=== PATIENT | female | born 1955 | race Caucasian/White ===

== ENCOUNTER 2017-02-06 19:38 | Observation (INO) | payer BC ==
[~2017-02-06] VITALS: Ht 167.6 cm; Wt 75.0 kg
[~2017-02-06 19:38] MED LIST: AGG PO; CLR10 PO; CRS20 PO; PRLSR20 PO
[2017-02-06] MEDS ORDERED: MoRPHine SULFATE 4 MG/ML 1 ML CARP\\VIAL IV STA (19:56)
[2017-02-06] MEDS ORDERED: ONDANSETRON INJ 2 MG/ML 2 ML VIAL IV STA (19:56)
[2017-02-06 20:20] LABS: BASO % 0.3 %; BASO ABS # 0.02 K/uL (0-0.2); COMPLETE YES; EOS % 1.7 %; HEMATOCRIT 38.3 % (37-47); IG% 0.7 %; LYMPH ABS # 1.82 K/uL (1.2-3.4); MEAN CELL VOLUME 89.3 fL (80-100); MEAN CORPUSCULAR HEMOGLOBIN 30.5 pg (25-34); MEAN CORPUSCULAR HGB CONC 34.2 g/dl (32-36); MEAN PLATELET VOLUME 9.3 fL (7.4-10.4); MONO % 6.8 %; NEUT % 59.5 %; PLATELET COUNT 200 K/uL (130-400); RED BLOOD COUNT 4.29 M/uL (4.2-5.4); WHITE BLOOD COUNT 5.87 K/uL (4.8-10.8)
[2017-02-06 20:39] LABS: BUN/CREATININE RATIO 18.6 (10-20); CALCIUM 8.8 mg/dl (8.5-10.1); CREATININE 0.81 mg/dl (0.60-1.20); POTASSIUM 3.5 mmol/L (3.5-5.1)
[2017-02-06 20:51] LABS: INR 0.9 (0.9-1.1); PARTIAL THROMBOPLASTIN RATIO 0.9
[2017-02-06 21:15] LABS: ALKALINE PHOSPHATASE 78 U/L (45-117); ALT/SGPT 24 U/L (12-78); AST/SGOT 21 U/L (15-37)
--- NOTE | 2017-02-06 21:51 | DIAGNOSTIC IMAGING REPORT ---
L-SPINE MIN 4 VIEWS ROUTINE CLINICAL HISTORY: Fall. COMPARISON: None FINDINGS: There is a mild compression fracture of the superior endplate of L2. There is slight anterolisthesis of L4 and L5. Moderate multilevel degenerative changes are present. There are cholecystectomy clips. IMPRESSION: 1. Mild L2 compression fracture which may be acute. 2. Moderate multilevel degenerative changes. Electronically signed by: Gonzalo Gallegos M.D. 02/06/2017 9:49 PM Dictated Date/Time: 02/06/2017 9:44 PM
--- NOTE | 2017-02-06 21:52 | DIAGNOSTIC IMAGING REPORT ---
CERVICAL SPINE 2 OR 3 VIEWS CLINICAL HISTORY: Fall. COMPARISON STUDY: Cervical spine radiographs May 06, 2013 FINDINGS: C7 is obscured on this exam. There is straightening of the normal cervical lordosis. No acute fracture is identified within visualized portions of the cervical spine. Moderate multilevel degenerative changes are present. IMPRESSION: 1. Obscuration of C7. 2. No fracture within visualized portions of the cervical spine. 3. Moderate multilevel degenerative disc disease. Electronically signed by: Gonzalo Gallegos M.D. 02/06/2017 9:50 PM Dictated Date/Time: 02/06/2017 9:49 PM
--- NOTE | 2017-02-06 21:53 | DIAGNOSTIC IMAGING REPORT ---
PELVIS 1 OR 2 VIEW ROUTINE CLINICAL HISTORY: Fall. COMPARISON STUDY: CT of the abdomen and pelvis November 02, 2008. FINDINGS: The sacroiliac joints and symphysis pubis are intact. No acute fracture within the pelvis or hips is identified. IMPRESSION: No acute fracture within the pelvis or hips. Electronically signed by: Gonzalo Gallegos M.D. 02/06/2017 9:51 PM Dictated Date/Time: 02/06/2017 9:50 PM
--- NOTE | 2017-02-06 21:54 | DIAGNOSTIC IMAGING REPORT ---
SACRUM COCCYX MIN 2 VIEWS CLINICAL HISTORY: Fall. Tailbone pain. COMPARISON STUDY: No previous studies for comparison. FINDINGS: No acute fracture is identified within the sacrum or coccyx by radiography. The sacroiliac joints are intact. IMPRESSION: No acute fracture of the sacrum or coccyx identified by radiography. Electronically signed by: Gonzalo Gallegos M.D. 02/06/2017 9:52 PM Dictated Date/Time: 02/06/2017 9:52 PM
--- NOTE | 2017-02-06 21:55 | DIAGNOSTIC IMAGING REPORT ---
RIGHT ANKLE MIN 3 VIEWS ROUTINE CLINICAL HISTORY: Right ankle pain following fall. COMPARISON: None FINDINGS: Alignment of the right ankle is anatomic. No acute fracture is identified. A well-corticated ossicle along the medial malleolus suggests old injury. IMPRESSION: 1. No acute fracture or dislocation of the right ankle. 2. Tiny ossicle along the medial malleolus which favors an old injury. Electronically signed by: Gonzalo Gallegos M.D. 02/06/2017 9:54 PM Dictated Date/Time: 02/06/2017 9:53 PM
[2017-02-06] MEDS ORDERED: ATOR-22 PO (21:57)
--- NOTE | 2017-02-06 21:58 | DIAGNOSTIC IMAGING REPORT ---
RIGHT FOOT MIN 3 VIEWS ROUTINE CLINICAL HISTORY: Right foot pain following fall. COMPARISON: None FINDINGS: The tarsometatarsal joints are intact. There is mild posterior and plantar calcaneal spurring. There is mild irregularity of the dorsal aspect of the distal talus. There are a few tiny ossific/calcific densities along the lateral aspect of the distal calcaneus and cuboid. IMPRESSION: 1. Subtle cortical irregularity along the dorsal aspect of the distal talus. This may reflect acute avulsion injury. 2. A few age indeterminate small bone fragments along the lateral aspect of the right midfoot. Electronically signed by: Gonzalo Gallegos M.D. 02/06/2017 9:56 PM Dictated Date/Time: 02/06/2017 9:54 PM
--- NOTE | 2017-02-06 21:58 | DIAGNOSTIC IMAGING REPORT ---
LEFT ANKLE MIN 3 VIEWS ROUTINE CLINICAL HISTORY: Left ankle pain following fall. COMPARISON: None FINDINGS: Alignment of the left ankle is anatomic. There is mild posterior calcaneal spurring. No acute fracture is identified. IMPRESSION: No acute fracture or dislocation of the left ankle. Electronically signed by: Gonzalo Gallegos M.D. 02/06/2017 9:57 PM Dictated Date/Time: 02/06/2017 9:56 PM
--- NOTE | 2017-02-06 21:59 | DIAGNOSTIC IMAGING REPORT ---
LEFT FOOT MIN 3 VIEWS ROUTINE CLINICAL HISTORY: Left foot pain following fall. COMPARISON: None FINDINGS: The tarsometatarsal joints are intact. No acute fracture is identified within the left foot. There is mild posterior calcaneal spurring. Mild arthritis is noted within the left midfoot. IMPRESSION: No acute fracture or dislocation of the left foot. Electronically signed by: Gonzalo Gallegos M.D. 02/06/2017 9:58 PM Dictated Date/Time: 02/06/2017 9:57 PM
[2017-02-06] MEDS ORDERED: LORATADINE 10 MG TAB PO PRN (23:15)
[2017-02-06] MEDS ORDERED: MoRPHine SULFATE 4 MG/ML 1 ML CARP\\VIAL IV PRN (23:15)
[2017-02-06] MEDS ORDERED: ZOLPIDEM TARTRATE 5 MG TAB PO PRN (23:15)
--- NOTE | 2017-02-06 23:20 | DIAGNOSTIC IMAGING REPORT ---
CT LUMBAR SPINE WITHOUT CT DOSE: 597.47 mGy.cm CLINICAL HISTORY: Back pain following fall. L2 compression fracture. TECHNIQUE: Axial images of the lumbar spine were obtained without IV contrast. Sagittal and coronal reconstructions were viewed. COMPARISON STUDY: Lumbar spine radiographs February 06, 2017. FINDINGS: For purposes of numbering on this exam, the L5-S1 disc space is assigned to axial image 635 of 719. There is an acute compression fracture of the superior endplate of L2 with 30% loss of vertebral body height. There is minimal retropulsion. No extension into the posterior elements is identified. No additional acute lumbar spine fractures are identified. There is moderate to marked disc space narrowing at L5-S1. There is possible hyperdense material within the anterior epidural space within the lumbar canal that measures 4 mm in thickness. IMPRESSION: 1. Acute L2 compression fracture with 30% loss of vertebral body height and minimal retropulsion. 2. Apparent hyperdense material within the anterior epidural space that reflect an epidural hematoma which measures approximately 4 mm in AP extent. An MRI of the lumbar spine is recommended. Discussed with Dr. Villanueva at time of dictation. Electronically signed by: Gonzalo Gallegos M.D. 02/06/2017 11:19 PM Dictated Date/Time: 02/06/2017 11:06 PM
[2017-02-06] MEDS ORDERED: IV FLUIDS COMPLETED PRN (23:45)
[2017-02-06] MEDS: ONDANSETRON INJ 2 MG/ML 2 ML VIAL IV PRN (23:45)
[2017-02-07] VITALS (7 sets, daily range): BP systolic 74–129; BP diastolic 49–79; PULSE 53–84; TEMP 36.4–37.1; O2SAT 92–95; Ht 167.6 cm; Wt 75.0 kg
--- NOTE | 2017-02-07 00:15 | EMERGENCY ROOM VISIT NOTE ---
History Report prepared by Meron: Deanna Iniguez Under the Supervision of: Dr. Wesley Villanueva M.D. First contact with patient: 19:47 Chief Complaint: FALL Stated Complaint: FALL, BACK & ANKLE PAIN History of Present Illness The patient is a 62 year old female who presents to the Emergency Room with complaints of constant pain from injuries following a fall that occurred just prior to arrival. The patient states that she was walking down her basement stairs to do laundry when she tripped and fell. She states she thinks she fell down about 8 steps. She twisted her back and complains of lower back pain along the midline. She also states bilateral lateral foot pain. She denies LOC, head injury, neck pain, abdominal pain, headache, knee pain or hip pain. Source of History: patient Onset: just MILL WORK Position: other (global) Symptom Intensity: severe Quality: other (pain from injuries) Timing: constant Modifying Factors (Worsening): movement Associated Symptoms: + back pain (lower along midline), No LOC, No SOB, No headache Note: Patient has bilaterally lateral foot pain. Review of Systems See HPI for pertinent positives & negatives. A total of 10 systems reviewed and were otherwise negative. Past Medical & Surgical Medical Problems: (1) Breast cancer (2) Cardiovascular stress testing (3) Cholecystectomy (4) Compression fracture of L2 (5) Gastroesophageal reflux disease (6) Hyperlipidemia (7) Migraines (8) Partial mastectomy Family History Cancer FHx: gallbladder disease Heart disease Hypertension Social History Smoking Status: Never Smoker Drug Use: none Marital Status: single Occupation Status: employed Current/Historical Medications Scheduled Atorvastatin (Lipitor), 20 MG PO HS Scheduled PRN Loratadine (Claritin), 10 MG PO DAILY PRN for ALLERGIC REACTION Allergies Coded Allergies: No Known Allergies (Verified , 02/06/17) Physical Exam Vital Signs Date Time Temp Pulse Resp B/P Pulse Ox O2 Delivery O2 Flow Rate FiO2 02/06/17 22:52 96 136/78 95 02/06/17 21:49 91 18 126/73 95 Room Air 02/06/17 19:45 36.9 96 20 126/79 97 Room Air Physical Exam Constitutional: Vital signs reviewed. Eyes: Pupils are equal round reactive to light. Conjunctiva are noninjected. ENT: Pharynx is clear without erythema or exudate. Mucous membranes are moist. Neck supple without meningeal signs. Nontender Cervical spine. Respiratory: Clear to auscultation bilaterally. Breath sounds are equal bilaterally. Cardiovascular: Regular rate and rhythm. No rubs or gallops. GI: Soft, nondistended and nontender. Bowel sounds are present. Musculoskeletal: Midline tenderness to lower lumbar and upper sacrum, no tenderness to thoracic spine, no step off. Tender to bilateral feet just below lateral malleolus. No hip tenderness or knee tenderness. Integumentary: No cyanosis. Neurological: The patient is awake and alert. No focal deficits. Psychiatric: Normal affect. Medical Decision & Procedures ER Provider Diagnostic Interpretation: Radiology results as stated below per my review and the radiologist's interpretation: PELVIS 1 OR 2 VIEW ROUTINE CLINICAL HISTORY: Fall. COMPARISON STUDY: CT of the abdomen and pelvis November 02, 2008. FINDINGS: The sacroiliac joints and symphysis pubis are intact. No acute fracture within the pelvis or hips is identified. IMPRESSION: No acute fracture within the pelvis or hips. Electronically signed by: Gonzalo Gallegos M.D. 02/06/2017 9:51 PM Dictated Date/Time: 02/06/2017 9:50 PM L-SPINE MIN 4 VIEWS ROUTINE CLINICAL HISTORY: Fall. COMPARISON: None FINDINGS: There is a mild compression fracture of the superior endplate of L2. There is slight anterolisthesis of L4 and L5. Moderate multilevel degenerative changes are present. There are cholecystectomy clips. IMPRESSION: 1. Mild L2 compression fracture which may be acute. 2. Moderate multilevel degenerative changes. Electronically signed by: Gonzalo Gallegos M.D. 02/06/2017 9:49 PM Dictated Date/Time: 02/06/2017 9:44 PM RIGHT FOOT MIN 3 VIEWS ROUTINE CLINICAL HISTORY: Right foot pain following fall. COMPARISON: None FINDINGS: The tarsometatarsal joints are intact. There is mild posterior and plantar calcaneal spurring. There is mild irregularity of the dorsal aspect of the distal talus. There are a few tiny ossific/calcific densities along the lateral aspect of the distal calcaneus and cuboid. IMPRESSION: 1. Subtle cortical irregularity along the dorsal aspect of the distal talus. This may reflect acute avulsion injury. 2. A few age indeterminate small bone fragments along the lateral aspect of the right midfoot. Electronically signed by: Gonzalo Gallegos M.D. 02/06/2017 9:56 PM Dictated Date/Time: 02/06/2017 9:54 PM LEFT FOOT MIN 3 VIEWS ROUTINE CLINICAL HISTORY: Left foot pain following fall. COMPARISON: None FINDINGS: The tarsometatarsal joints are intact. No acute fracture is identified within the left foot. There is mild posterior calcaneal spurring. Mild arthritis is noted within the left midfoot. IMPRESSION: No acute fracture or dislocation of the left foot. Electronically signed by: Gonzalo Gallegos M.D. 02/06/2017 9:58 PM Dictated Date/Time: 02/06/2017 9:57 PM SACRUM COCCYX MIN 2 VIEWS CLINICAL HISTORY: Fall. Tailbone pain. COMPARISON STUDY: No previous studies for comparison. FINDINGS: No acute fracture is identified within the sacrum or coccyx by radiography. The sacroiliac joints are intact. IMPRESSION: No acute fracture of the sacrum or coccyx identified by radiography. Electronically signed by: Gonzalo Gallegos M.D. 02/06/2017 9:52 PM Dictated Date/Time: 02/06/2017 9:52 PM RIGHT ANKLE MIN 3 VIEWS ROUTINE CLINICAL HISTORY: Right ankle pain following fall. COMPARISON: None FINDINGS: Alignment of the right ankle is anatomic. No acute fracture is identified. A well-corticated ossicle along the medial malleolus suggests old injury. IMPRESSION: 1. No acute fracture or dislocation of the right ankle. 2. Tiny ossicle along the medial malleolus which favors an old injury. Electronically signed by: Gonzalo Gallegos M.D. 02/06/2017 9:54 PM Dictated Date/Time: 02/06/2017 9:53 PM LEFT ANKLE MIN 3 VIEWS ROUTINE CLINICAL HISTORY: Left ankle pain following fall. COMPARISON: None FINDINGS: Alignment of the left ankle is anatomic. There is mild posterior calcaneal spurring. No acute fracture is identified. IMPRESSION: No acute fracture or dislocation of the left ankle. Electronically signed by: Gonzalo Gallegos M.D. 02/06/2017 9:57 PM Dictated Date/Time: 02/06/2017 9:56 PM CERVICAL SPINE 2 OR 3 VIEWS CLINICAL HISTORY: Fall. COMPARISON STUDY: Cervical spine radiographs May 06, 2013 FINDINGS: C7 is obscured on this exam. There is straightening of the normal cervical lordosis. No acute fracture is identified within visualized portions of the cervical spine. Moderate multilevel degenerative changes are present. IMPRESSION: 1. Obscuration of C7. 2. No fracture within visualized portions of the cervical spine. 3. Moderate multilevel degenerative disc disease. Electronically signed by: Gonzalo Gallegos M.D. 02/06/2017 9:50 PM Dictated Date/Time: 02/06/2017 9:[address] LUMBAR SPINE WITHOUT CT DOSE: 597.47 mGy.cm CLINICAL HISTORY: Back pain following fall. L2 compression fracture. TECHNIQUE: Axial images of the lumbar spine were obtained without IV contrast. Sagittal and coronal reconstructions were viewed. COMPARISON STUDY: Lumbar spine radiographs February 06, 2017. FINDINGS: For purposes of numbering on this exam, the L5-S1 disc space is assigned to axial image 635 of 719. There is an acute compression fracture of the superior endplate of L2 with 30% loss of vertebral body height. There is minimal retropulsion. No extension into the posterior elements is identified. No additional acute lumbar spine fractures are identified. There is moderate to marked disc space narrowing at L5-S1. There is possible hyperdense material within the anterior epidural space within the lumbar canal that measures 4 mm in thickness. IMPRESSION: 1. Acute L2 compression fracture with 30% loss of vertebral body height and minimal retropulsion. 2. Apparent hyperdense material within the anterior epidural space that reflect an epidural hematoma which measures approximately 4 mm in AP extent. An MRI of the lumbar spine is recommended. Discussed with Dr. Villanueva at time of dictation. Electronically signed by: Gonzalo Gallegos M.D. 02/06/2017 11:19 PM Dictated Date/Time: 02/06/2017 11:06 PM X-ray results as stated below per interpretation by me: Ribs w/ Chest X-Ray: No pneumothorax. Questionable fracture to 7th rib. Laboratory Results 02/06/17 20:09 Red Blood Count 4.29, Mean Corpuscular Volume 89.3, Mean Corpuscular Hemoglobin 30.5, Mean Corpuscular Hemoglobin Concent 34.2, Mean Platelet Volume 9.3, Neutrophils (%) (Auto) 59.5, Lymphocytes (%) (Auto) 31.0, Monocytes (%) (Auto) 6.8, Eosinophils (%) (Auto) 1.7, Basophils (%) (Auto) 0.3, Neutrophils # (Auto) 3.49, Lymphocytes # (Auto) 1.82, Monocytes # (Auto) 0.40, Eosinophils # (Auto) 0.10, Basophils # (Auto) 0.02 02/06/17 20:09 Test 02/06/17 20:09 White Blood Count 5.87 K/uL (4.8-10.8) Red Blood Count 4.29 M/uL (4.2-5.4) Hemoglobin 13.1 g/dL (12.0-16.0) Hematocrit 38.3 % (37-47) Mean Corpuscular Volume 89.3 fL (80-100) Mean Corpuscular Hemoglobin 30.5 pg (25-34) Mean Corpuscular Hemoglobin Concent 34.2 g/dl (32-36) Platelet Count 200 K/uL (130-400) Mean Platelet Volume 9.3 fL (7.4-10.4) Neutrophils (%) (Auto) 59.5 % Lymphocytes (%) (Auto) 31.0 % Monocytes (%) (Auto) 6.8 % Eosinophils (%) (Auto) 1.7 % Basophils (%) (Auto) 0.3 % Neutrophils # (Auto) 3.49 K/uL (1.4-6.5) Lymphocytes # (Auto) 1.82 K/uL (1.2-3.4) Monocytes # (Auto) 0.40 K/uL (0.11-0.59) Eosinophils # (Auto) 0.10 K/uL (0-0.5) Basophils # (Auto) 0.02 K/uL (0-0.2) RDW Standard Deviation 41.3 fL (36.4-46.3) RDW Coefficient of Variation 12.8 % (11.5-14.5) Immature Granulocyte % (Auto) 0.7 % Immature Granulocyte # (Auto) 0.04 K/uL (0.00-0.02) Prothrombin Time 10.0 SECONDS (9.0-12.0) Prothromb Time International Ratio 0.9 (0.9-1.1) Activated Partial Thromboplast Time 24.0 SECONDS (21.0-31.0) Partial Thromboplastin Ratio 0.9 Anion Gap 9.0 mmol/L (3-11) Est Creatinine Clear Calc Drug Dose 80.6 ml/min Estimated GFR () 91.5 Estimated GFR (Non- 78.9 BUN/Creatinine Ratio 18.6 (10-20) Calcium Level 8.8 mg/dl (8.5-10.1) Total Bilirubin 0.3 mg/dl (0.2-1) Direct Bilirubin < 0.1 mg/dl (0-0.2) Aspartate Amino Transf (AST/SGOT) 21 U/L (15-37) Alanine Aminotransferase (ALT/SGPT) 24 U/L (12-78) Alkaline Phosphatase 78 U/L (45-117) Total Protein 6.8 gm/dl (6.4-8.2) Albumin 3.8 gm/dl (3.4-5.0) Lipase 168 U/L (73-393) Laboratory results as reviewed by me. Medications Administered Medications (Trade) Dose Ordered Sig/Carly Route Start Time Stop Time Status Last Admin Dose Admin Morphine Sulfate (MoRPHine SULFATE INJ) 4 mg NOW STAT IV 02/06/17 19:56 02/06/17 19:58 DC 02/06/17 20:11 4 MG Ondansetron HCl (Zofran Inj) 4 mg NOW STAT IV 02/06/17 19:56 02/06/17 19:58 DC 02/06/17 20:07 4 MG Ondansetron HCl (Zofran Inj) 4 mg Q6H PRN IV 02/06/17 23:15 03/08/17 23:14 02/06/17 23:45 4 MG Morphine Sulfate (MoRPHine SULFATE INJ) 4 mg Q2H PRN IV 02/06/17 23:15 02/20/17 23:14 02/06/17 23:45 4 MG ED Course 1949: The patient was evaluated in room C1. A complete history and physical exam was performed. 1955: Zofran Inj 4 mg IV, Morphine Sulfate Inj 4 mg IV. 2037: Nurse states the patient is complaining of nausea and abdominal discomfort. I went to reassess the patient and she was at X-Ray. 2202: I reevaluated the patient. She reports no abdominal pain. One exam she is nontender to palpation except over left lower ribs. 2207: I spoke with Dr. Haji of [facility]. We discussed the patient and her results. The patient will be further evaluated by Dr. Haji - [facility]. 2325: I spoke with Dr. Gallegos - Radiology about the patient's CT results. He says there may be a possible epidural hematoma and recommends MRI of the foot and ankle. I discussed this with Dr. Adithya MELENDEZ and he agrees. He will follow up with an MRI of the foot and ankle. 2333: I discussed with the patient that she will be getting an MRI and her test results so far. Medical Decision This is a 62-year-old female presents with injuries after a fall. Differential diagnosis includes vertebral compression fracture, strain, pelvic fracture, foot fracture, multiple contusions. I did perform a limited focused review of portions of the patient's old chart on the electronic medical record. The patient has had no recent pertinent visits to this hospital. I did evaluate the patient as noted above. IV access was established. I did treat the patient with IV morphine and Zofran. I did order and personally review the patient's multiple x-rays as described above. She does have a L2 compression fracture as well as a right foot avulsion fracture. I did order and review the patient's blood work as noted in the electronic medical record. I did discuss the test results with the patient and her family. I did recommend hospitalization for further care and evaluation. I did discuss case with Dr. Ames who requested a CT scan be performed at the lower back. I did order a CT of the lumbar spine. I did review the images myself as well as the radiology report as described above. She does have an acute L2 fracture with questionable epidural bleed. The radiologist recommended an MRI to further clarify this. I did discuss this with the patient and her family. She was given additional pain medication. I did order an MRI of the lumbar spine as well as the right foot. Dr. Ames will follow up with the MRI results. Consults Time Called: 2205 Consulting Physician: Dr. Adithya MELENDEZ Returned Call: [address] Haji of [facility]. We discussed the patient and her results. The patient will be further evaluated by Dr. Adithya MELENDEZ. Impression Primary Impression: Compression fracture of L2 Additional Impressions: Foot fracture, right Fall possible epidural hematoma Scribe Attestation The scribe's documentation has been prepared under my direct and personally reviewed by me in its entirety. I confirm that the note above accurately reflects all work, treatment, procedures, and medical decision making performed by me. Departure Information Dispostion Being Evaluated By Hospitalist Referrals Hilda Montoya D.O. (PCP) Problem Qualifiers Primary Impression: Compression fracture of L2 Encounter type: initial encounter Fracture type: closed Qualified Codes: S32.020A - Wedge compression fracture of second lumbar vertebra, initial encounter for closed fracture Additional Impressions: Foot fracture, right Encounter type: initial encounter Fracture type: closed Qualified Codes: S92.901A - Unspecified fracture of right foot, initial encounter for closed fracture Fall Encounter type: initial encounter Qualified Codes: W19.XXXA - Unspecified fall, initial encounter
[2017-02-07] MEDS ORDERED: GADAVIST IV PRN (02:45)
--- NOTE | 2017-02-07 04:32 | History and Physical ---
History & Physical Date & Time of Service: Feb 07, 2017 at 04:20. Date of examination was 02/06/2017. Chief Complaint: Compression Fracture Of L2 Primary Care Physician: Hilda Montoya D.O. History of Present Illness Source: patient, family The patient is a 62-year-old female who presents emergency department with complaint of low back pain and right ankle pain after a fall that occurred just prior to arrival. She reports that she tripped and fell down her 8 basement steps. She denies any injury. She also reports some left rib cage pain. She denies any lightheadedness or dizziness that led to the fall. Past Medical/Surgical History Medical Problems: (1) Breast cancer Status: Chronic (2) Cardiovascular stress testing Status: Resolved (3) Cholecystectomy Status: Resolved (4) Gastroesophageal reflux disease Status: Chronic (5) Hyperlipidemia Status: Chronic (6) Migraines Status: Chronic (7) Partial mastectomy Status: Resolved Family History Cancer FHx: gallbladder disease Heart disease Hypertension Social History Smoking Status: Never Smoker Smokeless Tobacco Use: No Alcohol Use: none Drug Use: none Marital Status: single Occupational Status: employed Immunizations History of Influenza Vaccine: No History of Tetanus Vaccine?: No History of Pneumococcal: No History of Hepatitis B Vaccine: No Multi-Drug Resistant Organisms History of MDRO: No Allergies Coded Allergies: No Known Allergies (Verified , 02/06/17) Home Medications Scheduled Atorvastatin (Lipitor), 20 MG PO HS Scheduled PRN Loratadine (Claritin), 10 MG PO DAILY PRN for ALLERGIC REACTION Review of Systems The patient denies chest pain, palpitations, shortness of breath, cough, lower extremity swelling, vision change, hearing change, sore throat, fevers, chills, sweats, weight change, fatigue, nausea, vomiting, abdominal pain, pelvic pain, blood in urine or stool, dysuria, urinary frequency or urgency, lightheadedness , dizziness, headache, memory loss, rash, abnormal bruising or bleeding, imbalance, generalized weakness, neck pain, night sweats, or allergy symptoms. The review of systems is otherwise negative other than for that already noted above, and at least 10 systems have been reviewed. Physical Exam Vital Signs Date Time Temp Pulse Resp B/P Pulse Ox O2 Delivery O2 Flow Rate FiO2 02/07/17 04:05 37.1 84 16 129/79 92 Room Air 02/07/17 03:34 36.8 98 18 136/80 96 Room Air 02/07/17 02:38 100 20 124/67 95 Room Air 02/06/17 22:52 96 136/78 95 02/06/17 21:49 91 18 126/73 95 Room Air 02/06/17 19:45 36.9 96 20 126/79 97 Room Air The patient is awake, well-developed and adequately nourished, alert and oriented 3, normocephalic and atraumatic, lying in bed and in no acute distress. HEENT--PERRL, EOMI, mucous membranes and oropharynx normal. Neck--supple, no JVD or bruits, thyroid normal, trachea midline, no adenopathy. Heart--normal S1 and S2, no extra beats, no murmurs, rubs or gallops. Lungs--clear bilaterally with good air movement, no respiratory distress, no accessory muscle use. Abdomen--normal bowel sounds and soft, nontender and nondistended, no hernias or masses, no organomegaly. Extremities--no cyanosis, clubbing or edema. There are good distal pulses b/l. Dermatologic--normal skin turgor, normal color, warm and dry, no abnormal lymph nodes, no rash. Neurologic--cranial nerves II through XII grossly intact. Rheumatologic--reproducible pain over L2 region, over lateral ankle surface below the lateral malleolus, and over the left 12th rib. Psychiatric--normal affect. Diagnostics Laboratory Results Results Past 24 Hours Test 02/06/17 20:09 Range/Units White Blood Count 5.87 4.8-10.8 K/uL Red Blood Count 4.29 4.2-5.4 M/uL Hemoglobin 13.1 12.0-16.0 g/dL Hematocrit 38.3 37-47 % Mean Corpuscular Volume 89.3 80-100 fL Mean Corpuscular Hemoglobin 30.5 25-34 pg Mean Corpuscular Hemoglobin Concent 34.2 32-36 g/dl Platelet Count 200 130-400 K/uL Mean Platelet Volume 9.3 7.4-10.4 fL Neutrophils (%) (Auto) 59.5 % Lymphocytes (%) (Auto) 31.0 % Monocytes (%) (Auto) 6.8 % Eosinophils (%) (Auto) 1.7 % Basophils (%) (Auto) 0.3 % Neutrophils # (Auto) 3.49 1.4-6.5 K/uL Lymphocytes # (Auto) 1.82 1.2-3.4 K/uL Monocytes # (Auto) 0.40 0.11-0.59 K/uL Eosinophils # (Auto) 0.10 0-0.5 K/uL Basophils # (Auto) 0.02 0-0.2 K/uL RDW Standard Deviation 41.3 36.4-46.3 fL RDW Coefficient of Variation 12.8 11.5-14.5 % Immature Granulocyte % (Auto) 0.7 % Immature Granulocyte # (Auto) 0.04 0.00-0.02 K/uL Prothrombin Time 10.0 9.0-12.0 SECONDS Prothromb Time International Ratio 0.9 0.9-1.1 Activated Partial Thromboplast Time 24.0 21.0-31.0 SECONDS Partial Thromboplastin Ratio 0.9 Sodium Level 143 136-145 mmol/L Potassium Level 3.5 3.5-5.1 mmol/L Chloride Level 106 98-107 mmol/L Carbon Dioxide Level 28 21-32 mmol/L Anion Gap 9.0 3-11 mmol/L Blood Urea Nitrogen 15 7-18 mg/dl Creatinine 0.81 0.60-1.20 mg/dl Est Creatinine Clear Calc Drug Dose 80.6 ml/min Estimated GFR () 91.5 Estimated GFR (Non- 78.9 BUN/Creatinine Ratio 18.6 10-20 Random Glucose 110 70-99 mg/dl Calcium Level 8.8 8.5-10.1 mg/dl Total Bilirubin 0.3 0.2-1 mg/dl Direct Bilirubin < 0.1 0-0.2 mg/dl Aspartate Amino Transf (AST/SGOT) 21 15-37 U/L Alanine Aminotransferase (ALT/SGPT) 24 12-78 U/L Alkaline Phosphatase 78 45-117 U/L Total Protein 6.8 6.4-8.2 gm/dl Albumin 3.8 3.4-5.0 gm/dl Lipase 168 73-393 U/L Diagnostic Radiology Patient Name: JUNITO CASTILLO Unit Number: [id number] Dictated: 02/06/172149 Transcribed: 02/06/172149 JA Printed Date/Time: [~ rep prt dt]/[~ rep prt tm] [~ rep ct labl] - [~ rep ct ivnm] [facility] [place] [address] Dictated: 02/06/172149 Transcribed: 02/06/172149 JA Printed Date/Time: [~ rep prt dt]/[~ rep prt tm] [~ rep ct labl] - [~ rep ct ivnm] PELVIS 1 OR 2 VIEW ROUTINE CLINICAL HISTORY: Fall. COMPARISON STUDY: CT of the abdomen and pelvis November 02, 2008. FINDINGS: The sacroiliac joints and symphysis pubis are intact. No acute fracture within the pelvis or hips is identified. IMPRESSION: No acute fracture within the pelvis or hips. Electronically signed by: Gonzalo Gallegos M.D. 02/06/2017 9:51 PM Dictated Date/Time: 02/06/2017 9:50 PM The status of this report is Signed. Draft = Not yet reviewed or approved by Radiologist. Signed = Reviewed and approved by Radiologist. <AttendingPhy></AttendingPhy> <FamilyPhy>Hilda Montoya D.O.</FamilyPhy> < PrimaryPhy>Hilda Montoya D.O.</PrimaryPhy> <UnitNumber>[id number]</ UnitNumber> <VisitNumber>[id number]</VisitNumber> <PatientName>JUNITO CASTILLO</PatientName> <DateOfBirth>1955</DateOfBirth> <Location>[facility]</ Location> <ServiceDate>02/06/17</ServiceDate> <MNE>ESINDI</MNE> <OrderingPhy> Wesley Villanueva MD</OrderingPhy> <OrderingPhyMNE>f rep ord dr luns[place]</OrderingPhyMNE > <DictatingPhyMNE>f rep dict dr [place]uns[place]</DictatingPhyMNE> <CCListMNE>f rep ct mne</ CCListMNE> <AdmittingPhyMNE>f pt admit dr lunsford</AdmittingPhyMNE> <AttendingPhyMNE >f pt attend dr lunsford</AttendingPhyMNE> <ConsultingPhyMNE>f pt consult dr lunsford</ConsultingPhyMNE> <FamilyPhyMNE>f pt fam dr lunsford</FamilyPhyMNE> <OtherPhyMNE>f pt other dr lunsford</OtherPhyMNE> < PrimaryPhyMNE>f pt prim care dr lunsford</PrimaryPhyMNE> <ReferringPhyMNE>f pt referring dr lunsford</ReferringPhyMNE> Patient Name: JUNITO CASTILLO Unit Number: [id number] Dictated: 02/06/172143 Transcribed: 02/06/172143 JA Printed Date/Time: [~ rep prt dt]/[~ rep prt tm] [~ rep ct labl] - [~ rep ct ivnm] [facility] [place] [address] Dictated: 02/06/172143 Transcribed: 02/06/172143 JA Printed Date/Time: [~ rep prt dt]/[~ rep prt tm] [~ rep ct labl] - [~ rep ct ivnm] L-SPINE MIN 4 VIEWS ROUTINE CLINICAL HISTORY: Fall. COMPARISON: None FINDINGS: There is a mild compression fracture of the superior endplate of L2. There is slight anterolisthesis of L4 and L5. Moderate multilevel degenerative changes are present. There are cholecystectomy clips. IMPRESSION: 1. Mild L2 compression fracture which may be acute. 2. Moderate multilevel degenerative changes. Electronically signed by: Gonzalo Gallegos M.D. 02/06/2017 9:49 PM Dictated Date/Time: 02/06/2017 9:44 PM The status of this report is Signed. Draft = Not yet reviewed or approved by Radiologist. Signed = Reviewed and approved by Radiologist. <AttendingPhy></AttendingPhy> <FamilyPhy>Hilda Montoya D.O.</FamilyPhy> < PrimaryPhy>Hilda Montoya D.O.</PrimaryPhy> <UnitNumber>[id number]</ UnitNumber> <VisitNumber>[id number]</VisitNumber> <PatientName>JUNITO CASTILLO</PatientName> <DateOfBirth>1955</DateOfBirth> <Location>[facility]</ Location> <ServiceDate>02/06/17</ServiceDate> <MNE>ESINDI</MNE> <OrderingPhy> Wesley Villanueva MD</OrderingPhy> <OrderingPhyMNE>f rep ord dr luns[place]</OrderingPhyMNE > <DictatingPhyMNE>f rep dict dr [place]uns[place]</DictatingPhyMNE> <CCListMNE>f rep ct mncandace</ CCListMNE> <AdmittingPhyMNE>f pt admit dr lunsford</AdmittingPhyMNE> <AttendingPhyMNE >f pt attend dr lunsford</AttendingPhyMNE> <ConsultingPhyMNE>f pt consult dr lunsford</ConsultingPhyMNE> <FamilyPhyMNE>f pt fam dr lunsford</FamilyPhyMNE> <OtherPhyMNE>f pt other dr lunsford</OtherPhyMNE> < PrimaryPhyMNE>f pt prim care dr lunsford</PrimaryPhyMNE> <ReferringPhyMNE>f pt referring dr lunsford</ReferringPhyMNE> Patient Name: JUNITO CASTILLO Unit Number: [id number] Dictated: 02/06/172153 Transcribed: 02/06/172153 Printed Date/Time: [~ rep prt dt]/[~ rep prt tm] [~ rep ct labl] - [~ rep ct ivnm] [facility] [place] [address] Dictated: 02/06/172153 Transcribed: 02/06/172153 Printed Date/Time: [~ rep prt dt]/[~ rep prt tm] [~ rep ct labl] - [~ rep ct ivnm] RIGHT FOOT MIN 3 VIEWS ROUTINE CLINICAL HISTORY: Right foot pain following fall. COMPARISON: None FINDINGS: The tarsometatarsal joints are intact. There is mild posterior and plantar calcaneal spurring. There is mild irregularity of the dorsal aspect of the distal talus. There are a few tiny ossific/calcific densities along the lateral aspect of the distal calcaneus and cuboid. IMPRESSION: 1. Subtle cortical irregularity along the dorsal aspect of the distal talus. This may reflect acute avulsion injury. 2. A few age indeterminate small bone fragments along the lateral aspect of the right midfoot. Electronically signed by: Gonzalo Gallegos M.D. 02/06/2017 9:56 PM Dictated Date/Time: 02/06/2017 9:54 PM The status of this report is Signed. Draft = Not yet reviewed or approved by Radiologist. Signed = Reviewed and approved by Radiologist. <AttendingPhy></AttendingPhy> <FamilyPhy>Hilda Montoya D.O.</FamilyPhy> < PrimaryPhy>Hilda Montoya D.O.</PrimaryPhy> <UnitNumber>[id number]</ UnitNumber> <VisitNumber>[id number]</VisitNumber> <PatientName>ERINALISONJUNITO Ethan</PatientName> <DateOfBirth>1955</DateOfBirth> <Location>[facility]</ Location> <ServiceDate>02/06/17</ServiceDate> <MNE>ESINDI</MNE> <OrderingPhy> Wesley Villanueva MD</OrderingPhy> <OrderingPhyMNE>f rep ord dr luns[place]</OrderingPhyMNE > <DictatingPhyMNE>f rep dict dr [place]uns[place]</DictatingPhyMNE> <CCListMNE>f rep ct roxannae</ CCListMNE> <AdmittingPhyMNE>f pt admit dr lunsford</AdmittingPhyMNE> <AttendingPhyMNE >f pt attend dr lunsford</AttendingPhyMNE> <ConsultingPhyMNE>f pt consult dr lunsford</ConsultingPhyMNE> <FamilyPhyMNE>f pt fam dr lunsford</FamilyPhyMNE> <OtherPhyMNE>f pt other dr lunsford</OtherPhyMNE> < PrimaryPhyMNE>f pt prim care dr lunsford</PrimaryPhyMNE> <ReferringPhyMNE>f pt referring dr lunsford</ReferringPhyMNE> Patient Name: KAELA CASTILLORICSUE Long Unit Number: [id number] Dictated: 02/06/172156 Transcribed: 02/06/172156 JA Printed Date/Time: [~ rep prt dt]/[~ rep prt tm] [~ rep ct labl] - [~ rep ct ivnm] [facility] Radiology Department [place], [place] [address] Dictated: 02/06/172156 Transcribed: 02/06/172156 JA Printed Date/Time: [~ rep prt dt]/[~ rep prt tm] [~ rep ct labl] - [~ rep ct ivnm] LEFT FOOT MIN 3 VIEWS ROUTINE CLINICAL HISTORY: Left foot pain following fall. COMPARISON: None FINDINGS: The tarsometatarsal joints are intact. No acute fracture is identified within the left foot. There is mild posterior calcaneal spurring. Mild arthritis is noted within the left midfoot. IMPRESSION: No acute fracture or dislocation of the left foot. Electronically signed by: Gonzalo Gallegos M.D. 02/06/2017 9:58 PM Dictated Date/Time: 02/06/2017 9:57 PM The status of this report is Signed. Draft = Not yet reviewed or approved by Radiologist. Signed = Reviewed and approved by Radiologist. <AttendingPhy></AttendingPhy> <FamilyPhy>Hilda Montoya D.O.</FamilyPhy> < PrimaryPhy>Hilda Montoya D.O.</PrimaryPhy> <UnitNumber>[id number]</ UnitNumber> <VisitNumber>[id number]</VisitNumber> <PatientName>JUNITO CASTILLO Ethan</PatientName> <DateOfBirth>1955</DateOfBirth> <Location>[facility]</ Location> <ServiceDate>02/06/17</ServiceDate> <MNE>ESINDI</MNE> <OrderingPhy> Wesley Villanueva MD</OrderingPhy> <OrderingPhyMNE>f rep ord dr [place]uns[place]</OrderingPhyMNE > <DictatingPhyMNE>f rep dict dr [place]</DictatingPhyMNE> <CCListMNE>f rep ct mne</ CCListMNE> <AdmittingPhyMNE>f pt admit dr lunsford</AdmittingPhyMNE> <AttendingPhyMNE >f pt attend dr lunsford</AttendingPhyMNE> <ConsultingPhyMNE>f pt consult dr lunsford</ConsultingPhyMNE> <FamilyPhyMNE>f pt fam dr lunsford</FamilyPhyMNE> <OtherPhyMNE>f pt other dr lunsford</OtherPhyMNE> < PrimaryPhyMNE>f pt prim care dr lunsford</PrimaryPhyMNE> <ReferringPhyMNE>f pt referring dr lunsford</ReferringPhyMNE> Patient Name: JUNITO CASTILLO Unit Number: [id number] Dictated: 02/06/172151 Transcribed: 02/06/172151 JA Printed Date/Time: [~ rep prt dt]/[~ rep prt tm] [~ rep ct labl] - [~ rep ct ivnm] [facility] [place] [address] Dictated: 02/06/172151 Transcribed: 02/06/172151 JA Printed Date/Time: [~ rep prt dt]/[~ rep prt tm] [~ rep ct labl] - [~ rep ct ivnm] [~ rep ct add3]] SACRUM COCCYX MIN 2 VIEWS CLINICAL HISTORY: Fall. Tailbone pain. COMPARISON STUDY: No previous studies for comparison. FINDINGS: No acute fracture is identified within the sacrum or coccyx by radiography. The sacroiliac joints are intact. IMPRESSION: No acute fracture of the sacrum or coccyx identified by radiography. Electronically signed by: Gonzalo Gallegos M.D. 02/06/2017 9:52 PM Dictated Date/Time: 02/06/2017 9:52 PM The status of this report is Signed. Draft = Not yet reviewed or approved by Radiologist. Signed = Reviewed and approved by Radiologist. <AttendingPhy></AttendingPhy> <FamilyPhy>Hilda Montoya D.O.</FamilyPhy> < PrimaryPhy>Hilda Montoya D.O.</PrimaryPhy> <UnitNumber>[id number]</ UnitNumber> <VisitNumber>[id number]</VisitNumber> <PatientName>JUNITO CASTILLO</PatientName> <DateOfBirth>1955</DateOfBirth> <Location>[facility]</ Location> <ServiceDate>02/06/17</ServiceDate> <MNE>ESINDI</MNE> <OrderingPhy> Wesley Villanueva MD</OrderingPhy> <OrderingPhyMNE>f rep ord dr [place]uns[place]</OrderingPhyMNE > <DictatingPhyMNE>f rep dict dr [place]</DictatingPhyMNE> <CCListMNE>f rep ct mne</ CCListMNE> <AdmittingPhyMNE>f pt admit dr luns[place]</AdmittingPhyMNE> <AttendingPhyMNE >f pt attend dr luns[place]</AttendingPhyMNE> <ConsultingPhyMNE>f pt consult dr [place]uns[place]</ConsultingPhyMNE> <FamilyPhyMNE>f pt fam dr lunsford</FamilyPhyMNE> <OtherPhyMNE>f pt other dr luns[place]</OtherPhyMNE> < PrimaryPhyMNE>f pt prim care dr luns[place]</PrimaryPhyMNE> <ReferringPhyMNE>f pt referring dr lunsford</ReferringPhyMNE> Patient Name: JUNITO CASTILLO Unit Number: [id number] Dictated: 02/06/172152 Transcribed: 02/06/172152 JA Printed Date/Time: [~ rep prt dt]/[~ rep prt tm] [~ rep ct labl] - [~ rep ct ivnm] [facility] Radiology Department [place], [place] [address] Dictated: 02/06/172152 Transcribed: 02/06/172152 JA Printed Date/Time: [~ rep prt dt]/[~ rep prt tm] [~ rep ct labl] - [~ rep ct ivnm] [~ rep ct add3]] RIGHT ANKLE MIN 3 VIEWS ROUTINE CLINICAL HISTORY: Right ankle pain following fall. COMPARISON: None FINDINGS: Alignment of the right ankle is anatomic. No acute fracture is identified. A well-corticated ossicle along the medial malleolus suggests old injury. IMPRESSION: 1. No acute fracture or dislocation of the right ankle. 2. Tiny ossicle along the medial malleolus which favors an old injury. Electronically signed by: Gonzalo Gallegos M.D. 02/06/2017 9:54 PM Dictated Date/Time: 02/06/2017 9:53 PM The status of this report is Signed. Draft = Not yet reviewed or approved by Radiologist. Signed = Reviewed and approved by Radiologist. <AttendingPhy></AttendingPhy> <FamilyPhy>Hilda Montoya D.O.</FamilyPhy> < PrimaryPhy>Hilda Montoya D.O.</PrimaryPhy> <UnitNumber>[id number]</ UnitNumber> <VisitNumber>[id number]</VisitNumber> <PatientName>JUNITO CASTILLO</PatientName> <DateOfBirth>1955</DateOfBirth> <Location>[facility]</ Location> <ServiceDate>02/06/17</ServiceDate> <MNE>ESINDI</MNE> <OrderingPhy> Wesley Villanueva MD</OrderingPhy> <OrderingPhyMNE>f rep ord dr [place]</OrderingPhyMNE > <DictatingPhyMNE>f rep dict dr [place]</DictatingPhyMNE> <CCListMNE>f rep ct isatu</ CCListMNE> <AdmittingPhyMNE>f pt admit dr luns[place]</AdmittingPhyMNE> <AttendingPhyMNE >f pt attend dr luns[place]</AttendingPhyMNE> <ConsultingPhyMNE>f pt consult dr [place]uns[place]</ConsultingPhyMNE> <FamilyPhyMNE>f pt fam dr luns[place]</FamilyPhyMNE> <OtherPhyMNE>f pt other dr [place]uns[place]</OtherPhyMNE> < PrimaryPhyMNE>f pt prim care dr [place]uns[place]</PrimaryPhyMNE> <ReferringPhyMNE>f pt referring dr lunsford</ReferringPhyMNE> Patient Name: JUNITO CASTILLO Unit Number: [id number] Dictated: 02/06/172155 Transcribed: 02/06/172155 JA Printed Date/Time: [~ rep prt dt]/[~ rep prt tm] [~ rep ct labl] - [~ rep ct ivnm] [facility] [place] [address] Dictated: 02/06/172155 Transcribed: 02/06/172155 JA Printed Date/Time: [~ rep prt dt]/[~ rep prt tm] [~ rep ct labl] - [~ rep ct ivnm] [~ rep ct add3]] LEFT ANKLE MIN 3 VIEWS ROUTINE CLINICAL HISTORY: Left ankle pain following fall. COMPARISON: None FINDINGS: Alignment of the left ankle is anatomic. There is mild posterior calcaneal spurring. No acute fracture is identified. IMPRESSION: No acute fracture or dislocation of the left ankle. Electronically signed by: Gonzalo Gallegos M.D. 02/06/2017 9:57 PM Dictated Date/Time: 02/06/2017 9:56 PM The status of this report is Signed. Draft = Not yet reviewed or approved by Radiologist. Signed = Reviewed and approved by Radiologist. <AttendingPhy></AttendingPhy> <FamilyPhy>Hilda Montoya D.O.</FamilyPhy> < PrimaryPhy>Hilda Montoya D.O.</PrimaryPhy> <UnitNumber>[id number]</ UnitNumber> <VisitNumber>[id number]</VisitNumber> <PatientName>JUNITO CASTILLO</PatientName> <DateOfBirth>1955</DateOfBirth> <Location>[facility]</ Location> <ServiceDate>02/06/17</ServiceDate> <MNE>ESINDI</MNE> <OrderingPhy> Wesley Villanueva MD</OrderingPhy> <OrderingPhyMNE>f rep ord dr [place]</OrderingPhyMNE > <DictatingPhyMNE>f rep dict dr [place]</DictatingPhyMNE> <CCListMNE>f rep ct mne</ CCListMNE> <AdmittingPhyMNE>f pt admit dr luns[place]</AdmittingPhyMNE> <AttendingPhyMNE >f pt attend dr luns[place]</AttendingPhyMNE> <ConsultingPhyMNE>f pt consult dr [place]</ConsultingPhyMNE> <FamilyPhyMNE>f pt fam dr lunsford</FamilyPhyMNE> <OtherPhyMNE>f pt other dr luns[place]</OtherPhyMNE> < PrimaryPhyMNE>f pt prim care dr luns[place]</PrimaryPhyMNE> <ReferringPhyMNE>f pt referring dr luns[place]</ReferringPhyMNE> Patient Name: JUNITO CASTILLO Unit Number: [id number] Dictated: 02/06/172148 Transcribed: 02/06/172148 JA Printed Date/Time: [~ rep prt dt]/[~ rep prt tm] [~ rep ct labl] - [~ rep ct ivnm] [facility] [place] [address] Dictated: 02/06/172148 Transcribed: 02/06/172148 JA Printed Date/Time: [~ rep prt dt]/[~ rep prt tm] [~ rep ct labl] - [~ rep ct ivnm] [~ rep ct add3]] CERVICAL SPINE 2 OR 3 VIEWS CLINICAL HISTORY: Fall. COMPARISON STUDY: Cervical spine radiographs May 06, 2013 FINDINGS: C7 is obscured on this exam. There is straightening of the normal cervical lordosis. No acute fracture is identified within visualized portions of the cervical spine. Moderate multilevel degenerative changes are present. IMPRESSION: 1. Obscuration of C7. 2. No fracture within visualized portions of the cervical spine. 3. Moderate multilevel degenerative disc disease. Electronically signed by: Gonzalo Gallegos M.D. 02/06/2017 9:50 PM Dictated Date/Time: 02/06/2017 9:49 PM The status of this report is Signed. Draft = Not yet reviewed or approved by Radiologist. Signed = Reviewed and approved by Radiologist. <AttendingPhy></AttendingPhy> <FamilyPhy>Hilda Montoya D.O.</FamilyPhy> < PrimaryPhy>Hilda Montoya D.O.</PrimaryPhy> <UnitNumber>[id number]</ UnitNumber> <VisitNumber>[id number]</VisitNumber> <PatientName>JUNITO CASTILLO</PatientName> <DateOfBirth>1955</DateOfBirth> <Location>[facility]</ Location> <ServiceDate>02/06/17</ServiceDate> <MNE>ESINDI</MNE> <OrderingPhy> Wesley Villanueva MD</OrderingPhy> <OrderingPhyMNE>f rep ord dr [place]</OrderingPhyMNE > <DictatingPhyMNE>f rep dict dr [place]</DictatingPhyMNE> <CCListMNE>f rep ct mne</ CCListMNE> <AdmittingPhyMNE>f pt admit dr luns[place]</AdmittingPhyMNE> <AttendingPhyMNE >f pt attend dr [place]uns[place]</AttendingPhyMNE> <ConsultingPhyMNE>f pt consult dr [place]</ConsultingPhyMNE> <FamilyPhyMNE>f pt fam dr lunsford</FamilyPhyMNE> <OtherPhyMNE>f pt other dr luns[place]</OtherPhyMNE> < PrimaryPhyMNE>f pt prim care dr luns[place]</PrimaryPhyMNE> <ReferringPhyMNE>f pt referring dr lunsford</ReferringPhyMNE> Patient Name: JUNITO CASTILLO Unit Number: [id number] Dictated: 02/06/172305 Transcribed: 02/06/172305 JA Printed Date/Time: [~ rep prt dt]/[~ rep prt tm] [~ rep ct labl] - [~ rep ct ivnm] [facility] Radiology Department [place], [place] [address] Dictated: 02/06/172305 Transcribed: 02/06/172305 JA Printed Date/Time: [~ rep prt dt]/[~ rep prt tm] [~ rep ct labl] - [~ rep ct ivnm] CT LUMBAR SPINE WITHOUT CT DOSE: 597.47 mGy.cm CLINICAL HISTORY: Back pain following fall. L2 compression fracture. TECHNIQUE: Axial images of the lumbar spine were obtained without IV contrast. Sagittal and coronal reconstructions were viewed. COMPARISON STUDY: Lumbar spine radiographs February 06, 2017. FINDINGS: For purposes of numbering on this exam, the L5-S1 disc space is assigned to axial image 635 of 719. There is an acute compression fracture of the superior endplate of L2 with 30% loss of vertebral body height. There is minimal retropulsion. No extension into the posterior elements is identified. No additional acute lumbar spine fractures are identified. There is moderate to marked disc space narrowing at L5-S1. There is possible hyperdense material within the anterior epidural space within the lumbar canal that measures 4 mm in thickness. IMPRESSION: 1. Acute L2 compression fracture with 30% loss of vertebral body height and minimal retropulsion. 2. Apparent hyperdense material within the anterior epidural space that reflect an epidural hematoma which measures approximately 4 mm in AP extent. An MRI of the lumbar spine is recommended. Discussed with Dr. Villanueva at time of dictation. Electronically signed by: Gonzalo Gallegos M.D. 02/06/2017 11:19 PM Dictated Date/Time: 02/06/2017 11:06 PM The status of this report is Signed. Draft = Not yet reviewed or approved by Radiologist. Signed = Reviewed and approved by Radiologist. <AttendingPhy></AttendingPhy> <FamilyPhy>Hilda Montoya D.O.</FamilyPhy> < PrimaryPhy>Hilda Montoya D.O.</PrimaryPhy> <UnitNumber>[id number]</ UnitNumber> <VisitNumber>[id number]</VisitNumber> <PatientName>JUNITO CASTILLO</PatientName> <DateOfBirth>1955</DateOfBirth> <Location>[facility]</ Location> <ServiceDate>02/06/17</ServiceDate> <MNE>ESINDI</MNE> <OrderingPhy> Wesley Villanueva MD</OrderingPhy> <OrderingPhyMNE>f rep ord dr [place]</OrderingPhyMNE > <DictatingPhyMNE>f rep dict dr [place]</DictatingPhyMNE> <CCListMNE>f rep ct isatu</ CCListMNE> <AdmittingPhyMNE>f pt admit dr [place]uns[place]</AdmittingPhyMNE> <AttendingPhyMNE >f pt attend dr luns[place]</AttendingPhyMNE> <ConsultingPhyMNE>f pt consult dr lunsford</ConsultingPhyMNE> <FamilyPhyMNE>f pt fam dr lunsford</FamilyPhyMNE> <OtherPhyMNE>f pt other dr lunsford</OtherPhyMNE> < PrimaryPhyMNE>f pt prim care dr lunsford</PrimaryPhyMNE> <ReferringPhyMNE>f pt referring dr lunsford</ReferringPhyMNE> Impression Assessment and Plan Acute L2 compression fracture with 20% height loss/right calcaneus fracture/ left 12th rib bruise--the patient will be admitted to medical surgical floor for pain control. We'll consult orthopedic spine surgery to assess lumbar fracture, and consult general orthopedics to assess right calcaneus fracture. We'll place on tramadol 50-100 mg by mouth every 6 hours when necessary, hydrocodone/APAP 1 by mouth every 6 hours when necessary, and morphine sulfate 2 -4 mg IV every 2 hours when necessary. The CT of the lumbar spine did suggest the possibility of an epidural hematoma, however, this was not confirmed by MRI. Hypercholesterolemia--continue atorvastatin 20 mg by mouth at bedtime. Level of Care Med/Surg Advanced Directives Existing Advance Directive: No Existing Living Will: No Existing Power of Yeast Stacker: No Resuscitation Status FULL RESUSCITATION VTE Prophylaxis VTE Risk Assessment Done? Y/N: Yes Risk Level: Moderate Given or contraindicated: SCD's Social Service Consult None Apply
[2017-02-07] MEDS: ACETAMINOPHEN 325 MG TAB PO PRN ×4 (04:37→20:58)
[2017-02-07 04:54] LABS: URINE APPEARANCE CLOUDY (CLEAR); URINE BILIRUBIN NEG (NEG); URINE COLOR YELLOW; URINE EPITHELIAL CELL AUTO 20-30 /lpf (0-5); URINE NITRITE NEG (NEG); URINE SPECIFIC GRAVITY 1.021 (1.000-1.030); UROBILINOGEN NEG (NEG)
[2017-02-07 04:56] LABS: MANUAL MICROSCOPIC REQUIRED? NO; REVIEW REQ? NO
[2017-02-07] MEDS: ONDANSETRON INJ 2 MG/ML 2 ML VIAL IV PRN (06:18)
[2017-02-07] MEDS: MoRPHine SULFATE 2 MG/ML CARP IV PRN ×2 (06:18→09:57)
--- NOTE | 2017-02-07 06:44 | DIAGNOSTIC IMAGING REPORT ---
LEFT RIBS UNILATERAL WITH PA CHEST CLINICAL HISTORY: Left rib pain status post trauma COMPARISON STUDY: No previous studies for comparison. FINDINGS: The erect chest reveals no pneumothorax. There is no focal pulmonary consolidation. No pleural effusions are visualized. There is a left sixth rib fracture. This is felt to be old. IMPRESSION: Left sixth rib fracture. This is felt to be old. No evidence of pneumothorax. Electronically signed by: Jelani Jacobson M.D. 02/07/2017 6:42 AM Dictated Date/Time: 02/07/2017 6:40 AM
--- NOTE | 2017-02-07 07:48 | DIAGNOSTIC IMAGING REPORT ---
MRI THE RIGHT ANKLE NO CONTRAST CLINICAL HISTORY: Right ankle pain status post trauma COMPARISON STUDY: Conventional radiographic study dated 02/06/2017 FINDINGS: Imaging was performed in sagittal, coronal, and axial planes. There is dorsal and lateral soft tissue edema. No tendon tears are visualized. There is no evidence of major ligamentous disruption. There is edema within the anterior calcaneus, suggestive a nondisplaced fracture. There is a fracture of the anterior process of the calcaneus. Mild navicular edema, is likely secondary to a bone contusion. IMPRESSION: 1. Small fracture fragment arising from the anterior process of the calcaneus. There is adjacent marrow edema 2. Medial navicular edema consistent with a bone bruise/occult fracture 3. No evidence of tendon tear. 4. No evidence of major ligamentous disruption Electronically signed by: Jelani Jacobson M.D. 02/07/2017 7:47 AM Dictated Date/Time: 02/07/2017 7:40 AM
--- NOTE | 2017-02-07 08:12 | DIAGNOSTIC IMAGING REPORT ---
LUMBAR SPINE MRI WITH AND WITHOUT CONTRAST HISTORY: Fall with gluteal numbness. eval fro epidural hematoma TECHNIQUE: Multiplanar multisequence MRI of the lumbar spine was performed both before and after the intravenous administration of contrast. COMPARISON: Lumbar spine CT 02/06/2017. FINDINGS: For the purpose of the report the L5-S1 disc space will be located on axial image 30 of 33. Mild acute superior endplate compression fracture at L2 demonstrating up to 20% loss of height. The edema extends into the left pedicle. There is minimal retropulsion of less than 1 mm. No significant central canal narrowing due to the fracture. Mild paravertebral and endplate edema at this location. Severe disc space narrowing at L5-S1. Remaining disc spaces are preserved. The conus terminates at the L1-L2 disc space level. Alignment is intact. A few subcentimeter T2 hyperintense lesions within the left kidney favor cysts. Moderate facet degenerative changes seen at L3-S1. No MRI evidence for an epidural hematoma. The enhancement within the fractured superior endplate of L2 is likely due to to the posttraumatic change. Otherwise, no abnormal enhancement. L1-L2: No significant central canal or neural foraminal narrowing. L2-L3: No significant central canal or neural foraminal narrowing. Tiny broad-based posterior disc bulge. L3-L4: Small broad-based posterior disc bulge with ligamentum and facet hypertrophy resulting in mild central canal narrowing. L4-L5: Small broad-based posterior disc bulge with a left paracentral annular tear. In conjunction with the moderate facet and ligamentum hypertrophy this results in mild to moderate central canal and minimal bilateral neural foraminal narrowing. L5-S1: No significant central canal narrowing. Minimal bilateral neural foraminal narrowing due to the facet hypertrophy. IMPRESSION: 1. Acute mild superior endplate compression fracture at L2. No significant central canal narrowing. 2. No evidence for an epidural hematoma. 3. Degenerative changes as described above. Electronically signed by: Anthony Phillips M.D. 02/07/2017 8:11 AM Dictated Date/Time: 02/07/2017 8:01 AM
[2017-02-07 08:40] LABS: BASO % 0.2 %; BASO ABS # 0.01 K/uL (0-0.2); COMPLETE YES; EOS % 0.5 %; HEMATOCRIT 37.5 % (37-47); IG% 0.3 %; LYMPH % 22.9 %; MEAN CORPUSCULAR HEMOGLOBIN 30.6 pg (25-34); MEAN CORPUSCULAR HGB CONC 33.6 g/dl (32-36); MEAN PLATELET VOLUME 9.7 fL (7.4-10.4); MONO % 7.9 %; NEUT % 68.2 %; PLATELET COUNT 190 K/uL (130-400); RED BLOOD COUNT 4.12 M/uL (4.2-5.4); WHITE BLOOD COUNT 6.55 K/uL (4.8-10.8)
[2017-02-07 09:06] LABS: BUN/CREATININE RATIO 16.9 (10-20); CALCIUM 8.7 mg/dl (8.5-10.1); CREATININE 0.75 mg/dl (0.60-1.20); MAGNESIUM 2.3 mg/dl (1.8-2.4)
[2017-02-07] MEDS ORDERED: POLYETHYLENE (MIRALAX) 17 GM PACK PO ONE (10:00)
--- NOTE | 2017-02-07 10:15 | ORTHOPEDIC CONSULTATION ---
DATE OF CONSULTATION: 02/07/2017 CHIEF COMPLAINT: Back pain. HISTORY OF PRESENT ILLNESS: Very pleasant 62-year-old female that unfortunately fell last evening at home. She fell down several steps into her basement. She did sustain a right ankle fracture and L2 compression fracture. This morning she is able to sit up in bed, appears relatively comfortable. The right ankle was splinted. She denies any neck discomfort or arm pain. She denies any radicular complaints or peroneal numbness. Pain is in the lumbar spine only. It is reasonable at this time. PHYSICAL EXAMINATION: She has good strength to testing of left lower extremity. Again, right lower extremity is splinted. She is able to sit up in bed with relative ease. She has no limitations with active cervical range of motion or her upper extremities. MRI of the lumbar spine does demonstrate L2 compression fracture. No significant canal compromise. ASSESSMENT: L2 compression fracture. PLAN: At this time, we will order her an LSO brace to be worn when out of bed. Clearly, there are some issues regarding her right ankle injury and I am not sure of the alternate treatment plan at this region. Again, we did discuss with the patient and her possible kyphoplasty at the L2 level. I was fairly confident we will be able to avoid this procedure. I suspect she will heal nicely with adequate rest and bracing.
--- NOTE | 2017-02-07 16:49 | CONSULTATION REPORT ---
DATE OF CONSULTATION: 02/07/2017 DATE OF CONSULTATION: 02/07/2017. REASON FOR CONSULT: Calcaneus fracture. HISTORY OF PRESENT ILLNESS: The patient is a 62-year-old white female who apparently had fallen down her basement steps. She was reporting of low back pain and right ankle pain after the fall and also left rib cage pain. She was brought to the Emergency Room and seen by the staff. Multiple x-rays were taken. It was found that she had a L2 compression fracture, a left 6th rib fracture. An MRI showed a small fracture of the anterior process of the calcaneus with likely navicular edema consistent with bone bruise or occult fracture. She was admitted by medicine service and we have been asked to see her for her calcaneus fracture. PAST MEDICAL HISTORY: History of breast carcinoma, GERD, hyperlipidemia, migraine headaches. PAST SURGICAL HISTORY: Cholecystectomy, partial mastectomy. FAMILY AND SOCIAL HISTORY: As per admitting history and physical. HOME MEDICATIONS: Atorvastatin 20 mg p.o. at bedtime, loratadine 10 mg p.o. daily p.r.n. ALLERGIES: NKDA. REVIEW OF SYSTEMS: As per admitting history and physical. PHYSICAL EXAMINATION: VITAL SIGNS: Temperature 36.4, pulse 74, respirations 16, BP 114/74 and pulse ox is 93 on room air. GENERAL: The patient is a well-developed, well-nourished white female who is alert and oriented x3 and in no acute distress, pleasant and cooperative. She is sitting up in her chair at the bedside and is pleasant and cooperative and does not appear to be in any acute distress. She is wearing a brace fitted for her back and her L2 fracture which she states is comfortable at this time. EXTREMITIES: On examination of her lower extremities her right lower extremity is in a posterior splint. Toes are pink and warm and had good capillary refill. She has good sensation in all of her toes and is able to move all toes well with range of motion. Splint removed. She has noted swelling over the medial and lateral aspect of her ankle with ecchymosis noted. No obvious deformity's. She is able to go through gentle ROM of the ankle without difficulty and only with mild pain. On examination of her left foot which she was complaining of some pain, she has a little bit of swelling noted in the left forefoot, but no erythema and no overt hematoma. Toes are pink and warm and have good capillary refill and she is moving the toes well of the left foot. She is able to dorsiflex and plantarflex the foot well without pain; however, with inversion of the ankle and foot she has some pain over the lateral malleolus. She states that when she places her full weight on the left foot that she does have some discomfort in that area. She denies pain anywhere else of the lower extremities at this time including the knees and hips. Upper extremities at this time are nontender with the shoulders, elbows and wrists. Distal pulses are equal bilaterally. X-RAYS: The patient had multiple x-rays performed were reviewed with Dr. Singleton. MRI confirms a small fracture fragment at the anterior process of the calcaneus and noted edema of the navicular with likely bone contusion versus occult fracture. ASSESSMENT: 1. Above noted right anterior process fracture of the calcaneus with bone contusion and/or occult fracture of the navicular. 2. Mild lateral ankle sprain, left ankle. PLAN: After discussing the case with Dr. Singleton and reviewing the films, plans will be to fit the patient with a high tide walking boot for the right and make her partial weightbearing. We discussed with the patient that if she was having more pain than tolerable that she could back off her partial weightbearing status and do toe touch weightbearing if needed. She could be weightbearing as tolerated on her left lower extremity and that if she finds that she is having difficulty with ambulation because of the left ankle we can apply either a small air splint for support and/or a low tide walking boot to give her some support. Orthotics has been consulted for application of a high tide walking boot and the patient will need to go through physical therapy to test out her weightbearing status before she can go home. DELMY
--- NOTE | 2017-02-07 17:32 | Hospitalist Progress Note ---
Hospitalist Progress Note Date of Service Feb 07, 2017. Subjective pain controlled with morphine so far Constitutional: No fever Respiratory: No shortness of breath Cardiovascular: No chest pain Objective Vital Signs Date Time Temp Pulse Resp B/P Pulse Ox O2 Delivery O2 Flow Rate FiO2 02/07/17 15:31 36.4 74 16 114/74 93 Room Air 02/07/17 12:00 69 106/69 02/07/17 10:58 73 16 95/61 95 02/07/17 10:57 53 16 74/49 94 Room Air 02/07/17 07:53 Room Air 02/07/17 06:58 37.1 79 15 113/69 95 Room Air 02/07/17 04:20 Room Air 02/07/17 04:05 37.1 84 16 129/79 92 Room Air 02/07/17 03:34 36.8 98 18 136/80 96 Room Air 02/07/17 02:38 100 20 124/67 95 Room Air 02/06/17 22:52 96 136/78 95 02/06/17 21:49 91 18 126/73 95 Room Air 02/06/17 19:45 36.9 96 20 126/79 97 Room Air Physical Exam General Appearance: no apparent distress Respiratory/Chest: lungs clear, no respiratory distress Cardiovascular: regular rate, rhythm Abdomen: normal bowel sounds, non tender, soft Extremities: + pertinent finding (right foot with splint) Neurologic/Psychiatric: alert, oriented x 3 Skin: warm/dry Laboratory Results Last 24 Hours Test 02/06/17 20:09 02/07/17 00:00 02/07/17 08:03 White Blood Count 5.87 K/uL 6.55 K/uL Red Blood Count 4.29 M/uL 4.12 M/uL Hemoglobin 13.1 g/dL 12.6 g/dL Hematocrit 38.3 % 37.5 % Mean Corpuscular Volume 89.3 fL 91.0 fL Mean Corpuscular Hemoglobin 30.5 pg 30.6 pg Mean Corpuscular Hemoglobin Concent 34.2 g/dl 33.6 g/dl Platelet Count 200 K/uL 190 K/uL Mean Platelet Volume 9.3 fL 9.7 fL Neutrophils (%) (Auto) 59.5 % 68.2 % Lymphocytes (%) (Auto) 31.0 % 22.9 % Monocytes (%) (Auto) 6.8 % 7.9 % Eosinophils (%) (Auto) 1.7 % 0.5 % Basophils (%) (Auto) 0.3 % 0.2 % Neutrophils # (Auto) 3.49 K/uL 4.47 K/uL Lymphocytes # (Auto) 1.82 K/uL 1.50 K/uL Monocytes # (Auto) 0.40 K/uL 0.52 K/uL Eosinophils # (Auto) 0.10 K/uL 0.03 K/uL Basophils # (Auto) 0.02 K/uL 0.01 K/uL RDW Standard Deviation 41.3 fL 43.7 fL RDW Coefficient of Variation 12.8 % 13.1 % Immature Granulocyte % (Auto) 0.7 % 0.3 % Immature Granulocyte # (Auto) 0.04 K/uL 0.02 K/uL Prothrombin Time 10.0 SECONDS Prothromb Time International Ratio 0.9 Activated Partial Thromboplast Time 24.0 SECONDS Partial Thromboplastin Ratio 0.9 Sodium Level 143 mmol/L 141 mmol/L Potassium Level 3.5 mmol/L 4.0 mmol/L Chloride Level 106 mmol/L 109 mmol/L Carbon Dioxide Level 28 mmol/L 24 mmol/L Anion Gap 9.0 mmol/L 8.0 mmol/L Blood Urea Nitrogen 15 mg/dl 13 mg/dl Creatinine 0.81 mg/dl 0.75 mg/dl Est Creatinine Clear Calc Drug Dose 80.6 ml/min 82.6 ml/min Estimated GFR () 91.5 100.4 Estimated GFR (Non- 78.9 86.6 BUN/Creatinine Ratio 18.6 16.9 Random Glucose 110 mg/dl 107 mg/dl Calcium Level 8.8 mg/dl 8.7 mg/dl Total Bilirubin 0.3 mg/dl Direct Bilirubin < 0.1 mg/dl Aspartate Amino Transf (AST/SGOT) 21 U/L Alanine Aminotransferase (ALT/SGPT) 24 U/L Alkaline Phosphatase 78 U/L Total Protein 6.8 gm/dl Albumin 3.8 gm/dl Lipase 168 U/L Urine Color YELLOW Urine Appearance CLOUDY Urine pH 7.0 Urine Specific [place] 1.021 Urine Protein NEG Urine Glucose (UA) NEG Urine Ketones NEG Urine Occult Blood NEG Urine Nitrite NEG Urine Bilirubin NEG Urine Urobilinogen NEG Urine Leukocyte Esterase TRACE Urine WBC (Auto) 1-5 /hpf Urine RBC (Auto) 0-4 /hpf Urine Hyaline Casts (Auto) 0 /lpf Urine Epithelial Cells (Auto) 20-30 /lpf Urine Bacteria (Auto) NEG Magnesium Level 2.3 mg/dl Assessment and Plan 62 y/o F here after fall Acute L2 compression fracture with 20% height loss/right calcaneus fracture/ left 12th rib bruise - Ortho consulted. - Dr. Russo - Brace fitted for compression fracture. Outpatient f/u. - General orthopedics to assess right calcaneus fracture - recommend high tide walking boot followed by PT evaluation to confirm her weight bearing status before she can be d/harley - Tramadol, hydrocodone/APAP, morphine sulfate for pain control. - CT of the lumbar spine did suggest the possibility of an epidural hematoma, however, this was not confirmed by MRI. Hypercholesterolemia--continue atorvastatin
[2017-02-07] MEDS ORDERED: ATORVASTATIN 20 MG TAB PO SCH (21:00)
[2017-02-08] MEDS: ONDANSETRON INJ 2 MG/ML 2 ML VIAL IV PRN (00:10)
[2017-02-08] MEDS: MoRPHine SULFATE 2 MG/ML CARP IV PRN (00:12)
[2017-02-08 06:20] VITALS: BP 95/60; PULSE 64
[2017-02-08] MEDS: ACETAMINOPHEN 325 MG TAB PO PRN ×2 (06:24→12:17)
[2017-02-08 07:09] VITALS: BP 114/72; PULSE 69; TEMP 36.7; O2SAT 96
[2017-02-08 08:00] VITALS: O2SAT 96
[2017-02-08 08:09] LABS: BASO % 0.4 %; BASO ABS # 0.02 K/uL (0-0.2); COMPLETE YES; EOS % 1.8 %; HEMATOCRIT 38.5 % (37-47); IG% 0.2 %; LYMPH % 19.2 %; LYMPH ABS # 1.06 K/uL (1.2-3.4); MEAN CELL VOLUME 92.3 fL (80-100); MEAN CORPUSCULAR HEMOGLOBIN 30.7 pg (25-34); MEAN CORPUSCULAR HGB CONC 33.2 g/dl (32-36); MEAN PLATELET VOLUME 9.4 fL (7.4-10.4); MONO % 7.1 %; NEUT % 71.3 %; PLATELET COUNT 164 K/uL (130-400); RED BLOOD COUNT 4.17 M/uL (4.2-5.4); WHITE BLOOD COUNT 5.52 K/uL (4.8-10.8)
[2017-02-08 08:39] LABS: BUN/CREATININE RATIO 13.2 (10-20); CALCIUM 8.6 mg/dl (8.5-10.1); CREATININE 0.8 mg/dl (0.60-1.20); MAGNESIUM 2.4 mg/dl (1.8-2.4); POTASSIUM 3.6 mmol/L (3.5-5.1)
[2017-02-08] MEDS ORDERED: POLYETHYLENE (MIRALAX) 17 GM PACK PO SCH (09:00)
--- NOTE | 2017-02-08 11:28 | PROGRESS NOTE ---
DATE: 02/08/2017 Mrs. Menon is sitting at the bedside during our discussion, she appears quite comfortable. Denies any incapacitating back pain. Denies any leg symptoms. She has been able to ambulate with the use of a walker and a boot on her right foot. PHYSICAL EXAMINATION: She has good strength to testing, again appears comfortable. ASSESSMENT: L2 compression fracture. PLAN: At this time, she is to wear her brace when up and out of bed. She seems to be tolerating this well. We will need to see her in the office in the next 2 weeks to obtain an x-ray of her lumbar spine. Otherwise, she is good for discharge from an orthopedic spine standpoint.
[2017-02-08 11:30] VITALS: BP_SYST 117; BP_SYST 120; BP_DIAS 72; BP_DIAS 77; PULSE 90
--- NOTE | 2017-02-08 12:08 | Orthopedic Progress Note ---
Orthopedic Progress Note Date of Service Feb 08, 2017. Subjective Reports: feeling well, Denies: complaints Additional Notes: Pt sitting in chair at bedside. States that her PT session went well. Boot on RLE fitting well. No new complaints. Ambulated 80' this AM. Hoping to go home today. Objective N/V intact, capillary refill less than 2 sec., A&O x3, toes mobile High Tide walker on RLE. Fitting well. Sensation intact. Moving toes well. Date Time Temp Pulse Resp B/P Pulse Ox O2 Delivery O2 Flow Rate FiO2 02/08/17 08:00 96 Room Air 02/08/17 07:09 36.7 69 15 114/72 96 Room Air 02/08/17 06:20 64 95/60 02/08/17 00:10 Room Air 02/07/17 23:39 36.9 75 16 111/70 93 Room Air 02/07/17 15:31 36.4 74 16 114/74 93 Room Air 02/07/17 15:30 Room Air 02/07/17 12:00 69 106/69 Laboratory Results 24 Hours: Test 02/08/17 07:37 White Blood Count 5.52 K/uL Red Blood Count 4.17 M/uL Hemoglobin 12.8 g/dL Hematocrit 38.5 % Mean Corpuscular Volume 92.3 fL Mean Corpuscular Hemoglobin 30.7 pg Mean Corpuscular Hemoglobin Concent 33.2 g/dl Platelet Count 164 K/uL Mean Platelet Volume 9.4 fL Neutrophils (%) (Auto) 71.3 % Lymphocytes (%) (Auto) 19.2 % Monocytes (%) (Auto) 7.1 % Eosinophils (%) (Auto) 1.8 % Basophils (%) (Auto) 0.4 % Neutrophils # (Auto) 3.94 K/uL Lymphocytes # (Auto) 1.06 K/uL Monocytes # (Auto) 0.39 K/uL Eosinophils # (Auto) 0.10 K/uL Basophils # (Auto) 0.02 K/uL Assessment & Plan Assessment: Right Anterior Calcaneus Fx Left Mild Lateral Ankle Sprain Plan: PWB RLE with High Tide Walking Boot WBAT on LLE. ORTHO WILL SIGN OFF. PT TO FOLLOW UP WITH JOHANNE BARAKAT PA-C/DR HENRY MONDAY (TOMORROW) 02/09/17 AT 9:15 AM
--- NOTE | 2017-02-08 13:21 | Discharge Instructions ---
Discharge Instructions Date of Service Feb 08, 2017. Admission Reason for Admission: Compression Fracture Of L2 Discharge Discharge Diagnosis / Problem: Right Calcaneus fracture, L2 compression fracture Discharge Goals Goal(s): Decrease discomfort, Improve function, Improve disease control Activity Recommendations Activity Limitations: as noted below (Partial weight bearing on right leg with High Tide Walking Boot, Weight bearing as tolerated on left leg) . Instructions / Follow-Up Instructions / Follow-Up FOLLOW UP WITH JOHANNE BARAKAT PA-C/DR HENRY MONDAY (TOMORROW) 02/09/17 AT 9: 15 AM Follow up with Dr. Russo in 2 weeks Current Hospital Diet Patient's current hospital diet: Regular Diet Discharge Diet Recommended Diet: Regular Diet Pending Studies Studies pending at discharge: no Medical Emergencies . Who to Call and When: Medical Emergencies: If at any time you feel your situation is an emergency, please call 911 immediately. . Non-Emergent Contact Non-Emergency issues call your: Primary Care Provider . . "Provider Documentation" section prepared by Brit Beach. VTE Core Measure Inpt VTE Proph given/why not?: SCD's
[2017-02-08 13:47] VITALS: BP 120/72; PULSE 90; TEMP 36.7; O2SAT 96
--- NOTE | 2017-02-08 15:34 | Discharge Summary ---
Discharge Summary Date of Service Feb 08, 2017. Discharge Summary Admission Date: Feb 06, 2017 at 23:20 Discharge Date: Feb 08, 2017 Discharge Disposition: Home Principal Diagnosis: Right anterior calcaneus fracture Immunizations: Have You Had Influenza Vaccine: No History of Tetanus Vaccine?: No History of Pneumococcal: No History of Hepatitis B Vaccine: No Consultations: [facility] [place] Medication Reconciliation Continued Medications: Atorvastatin (Lipitor) 20 Mg Tab 20 MG PO HS, TAB Loratadine (Claritin) 10 Mg Tab 10 MG PO DAILY PRN for ALLERGIC REACTION, TAB Discharge Exam Last 24 Hours Test 02/08/17 07:37 White Blood Count 5.52 K/uL Red Blood Count 4.17 M/uL Hemoglobin 12.8 g/dL Hematocrit 38.5 % Mean Corpuscular Volume 92.3 fL Mean Corpuscular Hemoglobin 30.7 pg Mean Corpuscular Hemoglobin Concent 33.2 g/dl Platelet Count 164 K/uL Mean Platelet Volume 9.4 fL Neutrophils (%) (Auto) 71.3 % Lymphocytes (%) (Auto) 19.2 % Monocytes (%) (Auto) 7.1 % Eosinophils (%) (Auto) 1.8 % Basophils (%) (Auto) 0.4 % Neutrophils # (Auto) 3.94 K/uL Lymphocytes # (Auto) 1.06 K/uL Monocytes # (Auto) 0.39 K/uL Eosinophils # (Auto) 0.10 K/uL Basophils # (Auto) 0.02 K/uL RDW Standard Deviation 44.3 fL RDW Coefficient of Variation 13.2 % Immature Granulocyte % (Auto) 0.2 % Immature Granulocyte # (Auto) 0.01 K/uL Sodium Level 142 mmol/L Potassium Level 3.6 mmol/L Chloride Level 108 mmol/L Carbon Dioxide Level 28 mmol/L Anion Gap 6.0 mmol/L Blood Urea Nitrogen 11 mg/dl Creatinine 0.80 mg/dl Est Creatinine Clear Calc Drug Dose 77.4 ml/min Estimated GFR () 92.9 Estimated GFR (Non- 80.1 BUN/Creatinine Ratio 13.2 Random Glucose 103 mg/dl Calcium Level 8.6 mg/dl Magnesium Level 2.4 mg/dl Review of Systems: Constitutional: No fever Respiratory: No shortness of breath Cardiovascular: No chest pain Abdomen: No pain Musculoskeletal: + problem reported (pain well controlled with tylenol) Physical Exam: General Appearance: no apparent distress Respiratory/Chest: lungs clear, no respiratory distress Cardiovascular: regular rate, rhythm Abdomen / GI: normal bowel sounds, non tender, soft Neurologic/Psychiatric: alert, oriented x 3 Skin: warm/dry Hospital Course 62 y/o F here after fall on the stairs after getting tripped Acute L2 compression fracture with 20% height loss/right anterior calcaneus fracture/left 6th rib bruise - Ortho consulted. - Dr. Russo saw her for compression fracture - Brace fitted for compression fracture. Outpatient f/u in 2 wks. - General orthopedics consulted to evaluate right calcaneus fracture - recommended high tide walking boot with partial weight bearing. Underwent PT evaluation. To follow up with ortho as outpatient. - CT of the lumbar spine suggested possibility of an epidural hematoma, however , this was not confirmed by MRI. Hypotension episode - Has had evaluation in past with echo and monitor tech on telemetry. No loss of consciousness. Likely due to pain medication - was receiving IV morphine. Reviewed with cardiology and PCP - will follow up soon and have event monitor arranged as outpatient. Hypercholesterolemia--continue atorvastatin Total Time Spent: Greater than 30 minutes This includes examination of the patient, discharge planning, medication reconciliation, and communication with other providers. Discharge Instructions Please refer to the electronic Patient Visit Report (Discharge Instructions) for additional information. Additional Copies To Hilda Montoya D.O.
== END 2017-02-08 14:29 | disposition home or self-care (01) ==
LOC: ENRESERVTM → ENRESERVDT → EDBD 19:38 → C.EDC 19:39 → C.MSN 23:20
PROVIDERS: ADMIT Hospitalist; ATTEND Family Medicine
DX: S32.020A Wedge compression fracture of second lumbar vertebra, initial encounter for closed fracture (principal); S92.021A Displaced fracture of anterior process of right calcaneus, initial encounter for closed fracture; S93.402A Sprain of unspecified ligament of left ankle, initial encounter; R07.81 Pleurodynia; I95.9 Hypotension, unspecified; E78.5 Hyperlipidemia, unspecified; E78.00 Pure hypercholesterolemia, unspecified; Z79.899 Other long term (current) drug therapy; Z85.3 Personal history of malignant neoplasm of breast; Z82.49 Family history of ischemic heart disease and other diseases of the circulatory system; W10.9XXA Fall (on) (from) unspecified stairs and steps, initial encounter; Y93.E2 Activity, laundry; Y92.018 Other place in single-family (private) house as the place of occurrence of the external cause; Y99.8 Other external cause status

== ENCOUNTER → 2017-08-11 | Outpatient (CLI) | payer BC ==
[~2017-08-11] MED LIST changes: -AGG PO; +ATOR-22 PO; -CRS20 PO; -PRLSR20 PO
--- NOTE | 2017-08-11 15:46 | MAMMOGRAPHY REPORT ---
BILATERAL DIGITAL SCREENING MAMMOGRAM TOMOSYNTHESIS WITH CAD: 08/11/2017 CLINICAL HISTORY: Asymptomatic. Personal history of breast cancer. TECHNIQUE: Breast tomosynthesis in addition to standard 2D mammography was performed. Current study was also evaluated with a Computer Aided Detection (CAD) system. COMPARISON: Comparison is made to exams dated: 08/30/2016 breast MRI, 08/17/2016 ultrasound, 016 mammogram, 08/04/2016 mammogram, 07/31/2015 mammogram, and 07/25/2014 mammogram - [facility]. BREAST COMPOSITION: The tissue of both breasts is almost entirely fatty. FINDINGS: No suspicious masses, calcifications, or areas of architectural distortion are noted in ei ther breast. There has been no significant interval change compared to prior exams. There are stable postsurgical changes in the right upper outer quadrant from prior lumpectomy. A linear scar marker denotes a scar on the right breast. Benign-appearing right breast calcifications are not significant ly changed. IMPRESSION: ACR BI-RADS CATEGORY 2: BENIGN There is no mammographic evidence of malignancy. A 1 year screening mammogram is recommended. The pa tient will receive written notification of the results. Approximately 10% of breast cancers are not detected with mammography. A negative mammographic report should not delay biopsy if a clinically suggestive mass is present. Geena Philippe M.D. /:08/11/2017 08:39:48 Criminal Defense Attorney: Lucio Hampton M, [facility] letter sent: Normal 1/2 BI-RADS Code: ACR BI-RADS Category 2: Benign
== END | disposition home or self-care (01) ==
LOC: C.MAMM 07:44
PROVIDERS: ATTEND Family Medicine
DX: Z12.31 Encounter for screening mammogram for malignant neoplasm of breast (principal); Z85.3 Personal history of malignant neoplasm of breast

== ENCOUNTER 2020-10-12 15:28 | Inpatient (IN) ==
[2020-10-12] MEDS ORDERED: SODIUM CHLORIDE 0.9% 1000ML 1,000 ML IV SCH (16:00)
--- NOTE | 2020-10-12 16:01 | Emergency Department Note ---
Impression & Plan Monteggia fracture, Fall ED Provider Note NAME: JUNITO QUILES AGE: 65 SEX: F : 1955 ARRIVES VIA: Walk-In INFORMANT: [Patient][, ] ED PROVIDER(S): [Chintan Frye MD] Chief Complaint: Fall, arm pain HPI: Patient does present with fall and arm pain. The patient states that she was turning around and tripped over some laundry where she fell down striking her right arm. The patient denies any LOC. The patient denies any head or neck pain. The patient does have some mild tingling in the arm. The patient has not taken anything for pain prior to arrival. The patient's pain is worse with movement or palpation. Patient describes it as sharp and well localized to the right elbow and proximal forearm. The patient is right-hand dominant. Patient denies any fevers, chills, chest pains or shortness of breath. The patient denies any nausea or vomiting. Patient has seen Dr. Boston in the past due to a humerus fracture. ROS: See HPI for pertinent positives and negatives. A total of 10 systems were reviewed and otherwise negative. Past medical history: See below Surgical history: See below Social history: See below Physical Exam: GENERAL: Mildly uncomfortable in appearance, wearing glasses and a mask. EYE EXAM: Normal conjunctiva. PERRL, no anisocoria and EOM's grossly intact w/o pain. NECK: Supple, no nuchal rigidity, no adenopathy, non-tender. No signs of meningismus. No midline C-spine TTP. LUNGS: Clear to auscultation. Normal chest wall mechanics. HEART: NSR, no MRG. ABDOMEN: Abdomen soft, non-tender, normo-active bowel sounds, no masses, no rebound or guarding. BACK: No CVA TTP. SKIN: No rashes and no bruising. UPPER EXTREMITIES: Patient does have pain to the proximal dorsal aspect just distal to the right elbow, compartments are soft neurovascular intact distally. Pinpoint area of open wound with scant bleeding to the posterior aspect of the proximal forearm. LOWER EXTREMITIES: Grossly normal, no edema. NEURO EXAM: A&O x3, cranial nerves II-XII grossly intact, normal speech, moves all 4 extremities with decreased range of motion of right upper extremity secondary to pain. Differential diagnoses: Fracture, subluxation, dislocation, contusion, ligamen tous injury, neurovascular, compartment syndrome, rhabdomyolysis, as well as other pathologies. Course: Patient was seen and evaluated the bedside. Full history physical exam was performed. EKG: Sinus rhythm, rate of 65, normal intervals, normal axis, no significant change from previous EKG February 08, 2017. Imaging Studies: Radiology results as stated below per my review in the radiologist's interpretation: XR elbow 2V RT CLINICAL HISTORY: Right elbow pain following fall. COMPARISON: None FINDINGS: Note is made of an acute comminuted mildly displaced fracture within the proximal shaft of the right ulna. In addition, there is soft tissue gas as well as a significant amount of gas within the right elbow joint space. There is also posterior dislocation of the right radial head with respect to the capitellum. There may be a radial head impaction fracture. IMPRESSION: 1. Comminuted mildly displaced fracture of the proximal shaft of the right ulna. Soft tissue gas as well as a large amount of gas within the right elbow joint space raises the possibility of an open fracture. 2. Associated right radial head dislocation with possible impaction fracture of the radial head. ACT 112: Negative or not required by law. Electronically signed by: Gonzalo Gallegos M.D. 10/12/2020 4:36 PM Dictated: 10/12/201628Transcribed: 10/12/201628 Cardiac monitoring: An order was placed for continuous cardiac monitoring. The monitor shows a rate of 75 with sinus rhythm. MDM: Patient did present status post fall. The patient was initially hypotensive and she stated that she had been lightheaded so was given some fluids blood work was obtained. The patient does have a likely open Monteggia fracture. Given this the patient did have Ancef ordered and I did speak with the on-call orthopedist Dr. Meraz as the patient has seen Dr. Bhavik Owen in the past for humerus fracture. Patient was seen by Dr. Meraz reduced and splinted. The patient was admitted to his service pending likely operative fixation tomorrow. Past Med/Surg History Medical History Compression fracture of L2 Depression with anxiety Foot fracture, right Hypercholesterolemia Obesity Open fracture of right olecranon Rhinitis, chronic Right radial head fracture Surgical History History of cholecystectomy History of hysterectomy Status post arthroscopy of right shoulder Social History Smoking Status: Never smoker Hx Alcohol Use: Yes Hx Substance Use: No Preferred Language: [place] Communication Ability: Effective Photographic Equipment Inspector Required: No Beliefs That Will Affect Care: None marital status: Current Living Situation: Spouse Feels Safe at Home: Yes Assistive Devices: None Allergies Allergies Allergy/AdvReac Type Severity Reaction Status Date / Time No Known Allergies Allergy Verified 10/12/20 17:45 Home Meds Home Medications Medication Instructions Recorded Confirmed atorvastatin 40 mg PO DAILY 10/12/20 10/12/20 fluoxetine 20 mg PO DAILY 10/12/20 10/12/20 loratadine [Claritin] 10 mg PO DAILY PRN 10/12/20 10/12/20 Previous Rx's Medication Instructions Recorded naproxen sodium 440 mg PO BID #120 tab 10/14/20 ondansetron HCl [Zofran] 4 mg PO DAILY PRN #10 tab 10/14/20 oxycodone 5 - 10 mg PO Q4H PRN #20 tab 10/14/20 Results & Data (ED) Vital Signs Vital Signs - 24 hr 10/12/20 15:45 Temperature 36.8 C Temperature Source Temporal Artery Scan Pulse Rate 54 L Respiratory Rate 18 Blood Pressure 67/39 L Blood Pressure Mean 48 Pulse Oximetry 96 Sepsis Recent Fever Within 48 Hours No Sepsis New/Unexplained Change in Mental Status No Sepsis Action Taken by Nursing No Action Required Home Medications Current Medication List: was personally reviewed by me Laboratory Data Attestation: I reviewed the patient's lab results. Result diagrams: 10/12/20 16:25 10/12/20 16:25 Lab Results 10/12/20 10/12/20 10/12/20 Range/Units 16:25 16:25 20:10 WBC 5.82 (4.8-10.8) K/uL RBC 4.15 L (4.2-5.4) M/uL Hgb 12.8 (12.0-16.0) g/dL Hct 39.2 (37-47) % MCV 94.5 (80-100) fL MCH 30.8 (25-34) pg MCHC 32.7 (32-36) g/dL RDW Std Deviation 45.4 (36.4-46.3) fL RDW Coeff of Khang 13.0 (11.5-14.5) % Plt Count 257 (130-400) K/uL MPV 9.3 (7.4-10.4) fL Immature Gran % (Auto) 0.3 % Neut % (Auto) 60.4 % Lymph % (Auto) 27.5 % Placer % (Auto) 7.9 % Eos % (Auto) 3.4 % Baso % (Auto) 0.5 % Neut # (Auto) 3.51 (1.4-6.5) K/uL Lymph # (Auto) 1.60 (1.2-3.4) K/uL Placer # (Auto) 0.46 (0.11-0.59) K/uL Eos # (Auto) 0.20 (0-0.5) K/uL Baso # (Auto) 0.03 (0-0.2) K/uL Immature Gran # (Auto) 0.02 (0.00-0.02) K/uL Sodium 141 (136-145) mmol/L Potassium 3.7 (3.5-5.1) mmol/L Chloride 108 H (98-107) mmol/L Carbon Dioxide 26 (21-32) mmol/L Anion Gap 7.0 (3-11) BUN 12 (7-18) mg/dl Creatinine 1.04 (0.6-1.2) mg/dl Est Cr Clr Drug Dosing 54.5 ml/min Est GFR ( Amer) 66.2 Est GFR (Non-Af Amer) 57.1 BUN/Creatinine Ratio 11.4 (10-20) Glucose 158 H (70-99) mg/dl Calcium 9.4 (8.5-10.1) mg/dl Total Bilirubin 0.3 (0.2-1) mg/dl AST 19 (15-37) U/L ALT 25 (12-78) U/L Alkaline Phosphatase 90 (45-117) U/L Total Protein 6.6 (6.4-8.2) gm/dl Albumin 3.7 (3.4-5.0) gm/dl Globulin 2.9 (2.5-4.0) gm/dl Albumin/Globulin Ratio 1.3 (0.9-2) TSH 3.000 (0.300-4.500) uIu/ml COVID-19 Eval Order Covid19 [facility] SARS-CoV-2, RNA, NAAT (NEGATIVE) 10/12/20 10/12/20 Range/Units 20:10 20:10 WBC (4.8-10.8) K/uL RBC (4.2-5.4) M/uL Hgb (12.0-16.0) g/dL Hct (37-47) % MCV (80-100) fL MCH (25-34) pg MCHC (32-36) g/dL RDW Std Deviation (36.4-46.3) fL RDW Coeff of Khang (11.5-14.5) % Plt Count (130-400) K/uL MPV (7.4-10.4) fL Immature Gran % (Auto) % Neut % (Auto) % Lymph % (Auto) % Placer % (Auto) % Eos % (Auto) % Baso % (Auto) % Neut # (Auto) (1.4-6.5) K/uL Lymph # (Auto) (1.2-3.4) K/uL Placer # (Auto) (0.11-0.59) K/uL Eos # (Auto) (0-0.5) K/uL Baso # (Auto) (0-0.2) K/uL Immature Gran # (Auto) (0.00-0.02) K/uL Sodium (136-145) mmol/L Potassium (3.5-5.1) mmol/L Chloride (98-107) mmol/L Carbon Dioxide (21-32) mmol/L Anion Gap (3-11) BUN (7-18) mg/dl Creatinine (0.6-1.2) mg/dl Est Cr Clr Drug Dosing ml/min Est GFR ( Amer) Est GFR (Non-Af Amer) BUN/Creatinine Ratio (10-20) Glucose (70-99) mg/dl Calcium (8.5-10.1) mg/dl Total Bilirubin (0.2-1) mg/dl AST (15-37) U/L ALT (12-78) U/L Alkaline Phosphatase (45-117) U/L Total Protein (6.4-8.2) gm/dl Albumin (3.4-5.0) gm/dl Globulin (2.5-4.0) gm/dl Albumin/Globulin Ratio (0.9-2) TSH (0.300-4.500) uIu/ml COVID-19 Eval Order SARS-CoV-2, RNA, NAAT NEGATIVE NEGATIVE (NEGATIVE) Administered Medications Acetaminophen (Acetaminophen 500 Mg Tab) 1,000 mg PO Q8H PRN PRN Reason: Pain & Pre PT Stop: 11/11/20 21:54 Last Admin: 10/14/20 06:16 Dose: 1,000 mg Documented by: [id number] Atorvastatin Calcium (Atorvastatin 40 Mg Tab) 40 mg PO DAILY [facility] Stop: 11/13/20 08:59 Last Admin: 10/14/20 08:00 Dose: 40 mg Documented by: [id number] Docusate Sodium (Docusate Sodium 100 Mg Cap) 100 mg PO BID [facility] Stop: 11/11/20 21:54 Last Admin: 10/14/20 08:00 Dose: 100 mg Documented by: [id number] Admin: 10/13/20 20:57 Dose: 100 mg Documented by: [id number] Admin: 10/13/20 09:00 Dose: Not Given Documented by: [id number] Admin: 10/12/20 22:16 Dose: Not Given Documented by: [id number] Fluoxetine HCl (Fluoxetine Hcl 20 Mg Cap) 20 mg PO DAILY [facility] Stop: 11/13/20 08:59 Last Admin: 10/14/20 08:00 Dose: 20 mg Documented by: [id number] Hydromorphone HCl (Hydromorphone Inj 0.5 Mg/0.5 Ml Syr) 0.5 mg IV Q3H PRN PRN Reason: Pain (6,7,8,9,10) Stop: 10/26/20 21:54 Last Admin: 10/14/20 03:00 Dose: 0.5 mg Documented by: [id number] Admin: 10/13/20 23:27 Dose: 0.5 mg Documented by: [id number] Admin: 10/13/20 20:55 Dose: 0.5 mg Documented by: [id number] Admin: 10/13/20 17:26 Dose: 0.5 mg Documented by: [id number] Admin: 10/13/20 08:32 Dose: 0.5 mg Documented by: [id number] Admin: 10/12/20 22:27 Dose: 0.5 mg Documented by: [id number] Sodium Chloride (Nss 1000ml) 1,000 mls @ 100 mls/hr IV .Q10H [facility] Stop: 11/11/20 23:54 Last Admin: 10/14/20 08:01 Dose: 100 mls/hr Documented by: [id number] Infusion: 10/14/20 08:01 Dose: 100 mls/hr Documented by: [id number] Admin: 10/13/20 23:23 Dose: 100 mls/hr Documented by: [id number] Infusion: 10/13/20 23:23 Dose: 100 mls/hr Documented by: [id number] Infusion: 10/13/20 17:20 Dose: 100 mls/hr Documented by: [id number] Infusion: 10/13/20 10:40 Dose: 0 mls/hr Documented by: [id number] Admin: 10/13/20 08:32 Dose: 100 mls/hr Documented by: [id number] Infusion: 10/13/20 08:27 Dose: 100 mls/hr Documented by: [id number] Admin: 10/12/20 22:27 Dose: 100 mls/hr Documented by: [id number] Cefazolin Sodium (Ancef 2000mg) 2,000 mg in 15 mls @ 3.75 mls/min IV Q8H [facility]; Protocol Stop: 10/15/20 00:00 Last Admin: 10/14/20 08:01 Dose: 3.75 mls/min Documented by: [id number] Admin: 10/13/20 23:22 Dose: 3.75 mls/min Documented by: [id number] Admin: 10/13/20 17:26 Dose: 3.75 mls/min Documented by: [id number] Admin: 10/13/20 09:00 Dose: 3.75 mls/min Documented by: [id number] Admin: 10/12/20 23:49 Dose: 3.75 mls/min Documented by: [id number] Ondansetron HCl (Ondansetron Inj 2 Mg/Ml 2 Ml Vial) 4 mg IV Q6H PRN PRN Reason: Nausea/Vomiting Stop: 11/11/20 21:54 Last Admin: 10/14/20 10:20 Dose: 4 mg Documented by: [id number] Admin: 10/14/20 03:04 Dose: 4 mg Documented by: [id number] Admin: 10/13/20 17:30 Dose: 4 mg Documented by: [id number] Admin: 10/13/20 09:13 Dose: 4 mg Documented by: [id number] Admin: 10/13/20 03:37 Dose: 4 mg Documented by: [id number] Oxycodone HCl (Oxycodone Hcl Ir 5 Mg Tab (Immediate Release)) 10 mg PO Q4H PRN PRN Reason: SEVERE Pain (7,8,9,10) Stop: 10/26/20 21:54 Last Admin: 10/14/20 15:36 Dose: 10 mg Documented by: [id number] Admin: 10/14/20 10:15 Dose: 10 mg Documented by: [id number] Admin: 10/14/20 06:16 Dose: 10 mg Documented by: [id number] Admin: 10/13/20 03:38 Dose: 10 mg Documented by: [id number] Discontinued Medications Bupivacaine HCl (Bupivacaine 0.25% 30 Ml Vial) Confirm Administered Dose 30 ml .ROUTE .STK-MED ONE Stop: 10/13/20 10:55 Last Admin: 10/13/20 15:40 Dose: 30 ml Documented by: [id number] Epinephrine HCl (Epinephrine Inj 1 Mg/Ml Amp) Confirm Administered Dose 1 mg .ROUTE .STK-MED ONE Stop: 10/13/20 10:55 Last Admin: 10/13/20 15:41 Dose: 0.15 mg Documented by: [id number] Fentanyl Citrate (Fentanyl Citrate 100 Mcg/2 Ml Vial) 75 mcg IV NOW STA Stop: 10/12/20 17:58 Last Admin: 10/12/20 18:05 Dose: 75 mcg Documented by: [id number] Fentanyl Citrate (Fentanyl Citrate 100 Mcg/2 Ml Vial) 25 mcg IV Q5M PRN PRN Reason: PACU Use Only-Pain Stop: 10/13/20 18:45 Last Admin: 10/13/20 16:47 Dose: 25 mcg Documented by: [id number] Admin: 10/13/20 16:42 Dose: 25 mcg Documented by: [id number] Admin: 10/13/20 16:37 Dose: 25 mcg Documented by: [id number] Admin: 10/13/20 16:32 Dose: 25 mcg Documented by: [id number] Hydromorphone HCl (Hydromorphone Inj 0.5 Mg/0.5 Ml Syr) 0.5 mg IV NOW STA Stop: 10/12/20 18:32 Last Admin: 10/12/20 18:35 Dose: 0.5 mg Documented by: [id number] Sodium Chloride (Nss 1000ml) 1,000 mls @ 999 mls/hr IV .Q1H1M [facility] Stop: 10/12/20 17:00 Last Infusion: 10/12/20 17:51 Dose: 0 mls/hr Documented by: [id number] Admin: 10/12/20 16:29 Dose: 999 mls/hr Documented by: [id number] Cefazolin Sodium (Ancef 2000mg) 2,000 mg in 15 mls @ 3.75 mls/min IV NOW STA Stop: 10/12/20 16:13 Last Admin: 10/12/20 16:30 Dose: 3.75 mls/min Documented by: [id number] Morphine Sulfate (Morphine Sulfate 10 Mg/Ml Carp/Vial) 6 mg IV NOW STA Stop: 10/12/20 16:11 Last Admin: 10/12/20 16:30 Dose: 6 mg Documented by: [id number] Ondansetron HCl (Ondansetron Inj 2 Mg/Ml 2 Ml Vial) 4 mg IV NOW STA Stop: 10/12/20 17:02 Last Admin: 10/12/20 18:05 Dose: 4 mg Documented by: [id number] Ondansetron HCl (Ondansetron Inj 2 Mg/Ml 2 Ml Vial) Confirm Administered Dose 4 mg .ROUTE .STK-MED ONE Stop: 10/12/20 21:50 Last Admin: 10/12/20 21:57 Dose: 4 mg Documented by: [id number] Discharge Plan Visit Data Chief Complaint: Elbow Injury/Pain Stated Complaint: RT ELBOW INJURY ED Provider: Chintan Frye Discharge Problem: Monteggia fracture, Fall Patient Disposition: Admitted As Inpatient Discharge Instructions Interventions: ED Discharge Assessment Last Done: 10/12/20 21:15 Discharge Problem: Monteggia fracture Qualifiers: Encounter type: initial encounter Fracture type: open Laterality: right Fall Qualifiers: Encounter type: initial encounter Qualified Code(s): W19.XXXA - Unspecified fall, initial encounter
[2020-10-12] MEDS ORDERED: ceFAZolin 2000MG 2,000 MG/15 ML SYR IV STA (16:10)
[2020-10-12] MEDS ORDERED: MoRPHine SULFATE 10 MG/ML CARP/VIAL IV STA (16:10)
[2020-10-12 16:34] LABS: Basophils # (auto) 0.03 K/uL (0-0.2); Basophils % (auto) 0.5 %; Eosinophils % (auto) 3.4 %; Hematocrit (blood only) 39.2 % (37-47); Hemoglobin 12.8 g/dL (12.0-16.0); Immature Granulocytes # (auto) 0.02 K/uL (0.00-0.02); Immature Granulocytes % (auto) 0.3 %; Lymphocytes % (auto) 27.5 %; Mean Corpuscular Hemoglobin 30.8 pg (25-34); Mean Corpuscular Hgb Conc 32.7 g/dL (32-36); Mean Corpuscular Volume 94.5 fL (80-100); Mean Platelet Volume 9.3 fL (7.4-10.4); Monocytes # (auto) 0.46 K/uL (0.11-0.59); Monocytes % (auto) 7.9 %; Neutrophils # (auto) 3.51 K/uL (1.4-6.5); Neutrophils % (auto) 60.4 %; Platelet Count 257 K/uL (130-400); RDW Standard Deviation 45.4 fL (36.4-46.3); Red Blood Count 4.15 M/uL (4.2-5.4); White Blood Count 5.82 K/uL (4.8-10.8)
--- NOTE | 2020-10-12 16:37 | XRay Report ---
XR elbow 2V RT CLINICAL HISTORY: Right elbow pain following fall. COMPARISON: None FINDINGS: Note is made of an acute comminuted mildly displaced fracture within the proximal shaft of the right ulna. In addition, there is soft tissue gas as well as a significant amount of gas within the right elbow joint space. There is also posterior dislocation of the right radial head with respect to the capitellum. There may be a radial head impaction fracture. IMPRESSION: 1. Comminuted mildly displaced fracture of the proximal shaft of the right ulna. Soft tissue gas as well as a large amount of gas within the right elbow joint space raises the possibility of an open fracture. 2. Associated right radial head dislocation with possible impaction fracture of the radial head. ACT 112: Negative or not required by law. Electronically signed by: Gonzalo Gallegos M.D. 10/12/2020 4:36 PM DELMY
--- NOTE | 2020-10-12 16:39 | XRay Report ---
XR forearm RT 2V CLINICAL HISTORY: pain post fall COMPARISON: None FINDINGS: Note is made of a right radial head dislocation with possible impaction fracture of the ra dial head. In addition, there is an acute comminuted mildly displaced fracture of the proximal shaft of the right ulna. There is adjacent soft tissue gas. There is also gas within the right elbow joint space. No distal right radial or ulnar fracture is noted. IMPRESSION: 1. Acute comminuted displaced fracture of the proximal shaft of the right ulna with adjacent soft tis juice gas and gas within the joint space which suggests an open fracture. 2. Associated radial head dislocation with possible impaction fraction over the right radial head. 3. No distal right radial or ulnar fracture. ACT 112: Negative or not required by law. Electronically signed by: Gonzalo Gallegos M.D. 10/12/2020 4:38 PM
[2020-10-12 16:53] LABS: Albumin Level 3.7 gm/dl (3.4-5.0); BUN Creatinine Ratio 11.4 (10-20); Calcium 9.4 mg/dl (8.5-10.1); Creatinine Clr Calc Pharmacy 54.5 ml/min; Est GFR (African American) 66.2; Est GFR (Non-African American) 57.1; Potassium 3.7 mmol/L (3.5-5.1)
[2020-10-12] MEDS ORDERED: ONDANSETRON INJ 2 MG/ML 2 ML VIAL IV STA (17:01)
[2020-10-12 17:03] LABS: Albumin Globulin Ratio 1.3 (0.9-2); Bilirubin,Total 0.3 mg/dl (0.2-1); Globulin 2.9 gm/dl (2.5-4.0); Total Protein 6.6 gm/dl (6.4-8.2)
[2020-10-12] MEDS ORDERED: fentaNYL citrate 100 MCG/2 ML VIAL IV STA (17:57)
[2020-10-12] MEDS ORDERED: fentaNYL citrate 100 MCG/2 ML VIAL IV PRN (17:57)
[2020-10-12] MEDS ORDERED: HYDROmorphone INJ 0.5 MG/0.5 ML SYR IV STA (18:31)
--- NOTE | 2020-10-12 18:57 | Fluoroscopy Report ---
FL forearm RT 2V CLINICAL HISTORY: Postreduction. COMPARISON STUDY: Right elbow 10/12/2020. FLUOROSCOPY TIME: 21 seconds. FINDINGS: 2 fluoroscopic spot images the right elbow demonstrates postreduction the elbow dislocation . Alignment is anatomic at the elbow joint. Comminuted fracture within the proximal ulna as well as a radial head fracture again noted. IMPRESSION: Status post reduction of the right elbow dislocation. Radial head and proximal ulnar frac tures are again noted. ACT 112: Negative or not required by law. Electronically signed by: Anthony Phillips M.D. 10/12/2020 6:56 PM
--- NOTE | 2020-10-12 19:22 | History & Physical Report ---
Date of Service October 12, 2020 Assessment & Plan (1) Open fracture of right olecranon: I discussed the diagnoses and treatment options for the open olecranon fracture with associated radial fracturedislocation. The ED provided initial acute management with parenteral antibiotics in a timely manner. I applied a sterile dressing after cleansing the wound, which is acceptable for today for the grade 1 open injury. Formal surgical irrigation debridement followed by open reduction internal fixation is recommended. This should happen in 24-48 hours. Given the acuity of this injury, I recommend admission for surgery tomorrow. Rapid Covid testing for surgery tomorrow. Remain in the splint and elevate with pain control. Anesthesia evaluation for perioperative management. N.p.o. at midnight We will obtain CT scan for definitive treatment plan on the radial head of excision versus fixation of a small rim fracture Proceed tomorrow with right olecranon and radial head irrigation and debridement and open reduction and internal fixation. (2) Right radial head fracture: History of Present Illness Chief Complaint: Right open olecranon and radial head fracture Primary Care Provider: Hilda Montoya, DO 65-year-old female who stumbled in her basement tonight and landed directly on her right elbow resulting in immediate pain and open wound. She was brought to the [facility] emergency room by a family member for evaluation. Exam and radiographs demonstrate an open olecranon fracture and associated radial head dislocation with fracture. She reports no antecedent elbow pain. She denies any previous injuries to her wrist or elbow. 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 She states that she has been in her usual state of health and has been quite isolated from [facility]. She states her last meal was at 1400 today. She denies any numbness or tingling to her hand that persisted. She did have temporary tingling in her hand when it first happened. She denies any other sources of pain such as her more proximal arm, clavicle, head or neck. She believes that injury is isolated. She denies any loss of consciousness. Allergies Allergy/AdvReac Type Severity Reaction Status Date / Time No Known Allergies Allergy Verified 10/12/20 17:45 Home Medications Medication Instructions Recorded Confirmed Type atorvastatin 40 mg PO DAILY 10/12/20 10/12/20 History famotidine 20 mg PO DAILY PRN 10/12/20 10/12/20 History fluoxetine 20 mg PO DAILY 10/12/20 10/12/20 History loratadine [Claritin] 10 mg PO DAILY PRN 10/12/20 10/12/20 History Past Med/Surg History Medical History (Updated 10/12/20 @ 19:16 by Jonathan Meraz MD) Compression fracture of L2 Depression with anxiety Foot fracture, right Hypercholesterolemia Open fracture of right olecranon Right radial head fracture Surgical History (Updated 10/12/20 @ 19:12 by Jonathan Meraz MD) History of cholecystectomy History of hysterectomy Status post arthroscopy of right shoulder Social History Smoking Status: Never smoker Preferred Language: Maltese Feels Safe at Home: Yes Review of Systems Review of Systems: All systems reviewed & are unremarkable except as noted in HPI & below Respiratory: no dyspnea and no pain on inspiration Cardiovascular: no chest pain and no lightheadedness Gastrointestinal: no nausea and no vomiting Musculoskeletal: no back pain and no neck pain Integumentary: no rash and no lesions Neurologic: no numbness and no paresthesia Physical Exam Physical Exam: Right upper extremity: The right upper extremity has a punctate wound on the dorsal side of her proximal ulna. It has dark expressible blood. There is some hematoma formation. She has full active range of motion of her digits and sensation is grossly intact to light touch. Tenderness is isolated to the proximal ulna and elbow. She has no tenderness along the humerus, glenohumeral joint, clavicle. She demonstrates range of motion of the neck that is without pain. Constitutional: well developed and well nourished; no acute distress and not intoxicated appearing ENMT: external ear and nose normal, oropharynx normal Respiratory: normal respiratory effort; no respiratory distress Cardiovascular: Extremities: normal capillary refill; no edema Skin: no rashes, warm and dry Psychiatric: A+Ox3, euthymic affect Results & Data Results & Data ([facility]) Vital Signs (Past 12 Hours) Vital Signs Temp Pulse Pulse Resp BP BP Pulse Ox 10/12/20 16:58 72 18 148/78 H 99 10/12/20 15:45 36.8 C 54 L 18 67/39 L 96 Laboratory Results H & H 10/12/20 Range/Units 16:25 Hgb 12.8 (12.0-16.0) g/dL Hct 39.2 (37-47) % Diagnostic Findings Right elbow and forearm x-rays: Post injury x-rays demonstrate a comminuted fracture of the proximal metadiaphyseal junction of the olecranon, that is extra-articular in nature. There is an apex dorsal deformity. The radial head is dislocated posteriorly with a small rim avulsion fragment from its volar side. There appears to be no distal humeral disruption. Fluoroscopic images from my reduction demonstrate a well-seated radial head on the capitellum with a rim fracture that is displaced. There is only minimal improvement in the overall alignment of the proximal ulna. Elbow is concentric for now. CT scan pending Code Status & VTE Plan VTE Prophylaxis Plan VTE Prophylaxis will be ordered: No Reason for no VTE mechanical prophylaxis: Treatment not indicated (Standard perisurgical DORIS hose and SCDs. May ambulate as tolerated on the monroy.) PG Care Time/CCT Total # of Minutes Spent Total Time Spent with Patient: Total time spent is greater than 50% in coordination of care (as documented) at patient's floor/unit and/or counseling patient: Coding Level of Care Code 20538 Initial Inpt Care Lvl 3 Diagnoses Open fracture of right olecranon S52.021B Right radial head fracture S52.121A Orthopedic Surgery Surgery Details Surgery Scheduled for: 10/13/20 Comments: Right elbow application of sterile dressing and elbow reduction: After discussion of the purpose of the procedure, the patient was agreeable to proceed. The emergency room staff provided parenteral pain management via the IV. Patient was not sedated and cooperative and talkative throughout the procedure. The limb was then lifted so I could evaluate the wound. It was indeed a few centimeter punctate wound from a grade 1 type open injury. It was thoroughly cleansed with saline soaked gauze before application of a moist iodine soaked gauze, held in place by web roll. Using axial traction, supination and palmar directed force in the radial head, the radial head was reduced onto the capitellum. Fluoroscopic exam was used to ensure acceptable reduction. The arm was held by the emergency room bicycle service technician while I applied a well-padded posterior splint with side slab. Patient remained neurovascularly intact throughout and after the gentle reduction maneuvers with splinting. Mini C-arm fluoroscopy was used to ensure maintenance of reduction after application of splint. A CT scan be obtained to evaluate extent of radial head reduction and fracture.
--- NOTE | 2020-10-12 20:04 | CT Scan Report ---
RIGHT ELBOW CT CT DOSE: 695.79 mGy.cm HISTORY: Right elbow fracture. Eval radial head fracture, preop planning TECHNIQUE: Multiaxial CT images of the right elbow were performed and reformatted in the sagittal and coronal plane without the use of contrast. A dose lowering technique was utilized adhering to the p rinciples of NATY. COMPARISON: Right elbow 10/12/2020. FINDINGS: The right elbow dislocation has been reduced. A right elbow effusion and gas is again noted . There is also gas tracking within the superficial and deep soft tissues of the proximal forearm. Th is suggests a prior open fracture. Improved anatomic alignment status post reduction of the comminute d fracture involving the proximal metadiaphysis of the ulna. The ulnar fracture demonstrates 5 mm of offset. There is also displaced radial head fracture with 5 mm of distraction of the adjacent bony fr agment. The fragment is displaced anteriorly. Tiny avulsion fractures at the lateral epicondyle which demonstrate up to 1 mm of distraction. IMPRESSION: 1. Improved anatomic alignment status post reduction of the right elbow fracture/dislocation. No disl ocation at this time. 2. Mildly displaced radial head and proximal ulnar fractures as described above. 3. Right elbow effusion. 4. Subcutaneous and deep soft tissue gas within the proximal forearm. There is also gas extending to the elbow joint space. This raises the possibility of a previous open fracture. ACT 112: Negative or not required by law. Electronically signed by: Anthony Phillips M.D. 10/12/2020 8:02 PM
[2020-10-12] MEDS ORDERED: ONDANSETRON INJ 2 MG/ML 2 ML VIAL ONE (21:49)
[2020-10-12] MEDS ORDERED: diphenhydrAMINE Capsule 25 MG CAP PO PRN (21:55)
[2020-10-12] MEDS ORDERED: diphenhydrAMINE 50 MG/ML VIAL IV PRN (21:55)
[2020-10-12] MEDS ORDERED: oxyCODONE HCL IR 5 MG TAB (IMMEDIATE RELEASE) PO PRN (21:55)
[2020-10-12] MEDS ORDERED: ALUMINUM/MAGNESIUM SUSP 30 ML UDC PO PRN (21:55)
[2020-10-12] MEDS ORDERED: ACETAMINOPHEN 500 MG TAB PO PRN (21:55)
[2020-10-12] MEDS ORDERED: MAGNESIUM HYDROXIDE SUSP 30 ML UDC PO PRN (21:55)
[2020-10-12] MEDS: DOCUSATE SODIUM 100 MG CAP PO SCH (22:16)
[2020-10-12] MEDS: SODIUM CHLORIDE 0.9% 1000ML 1,000 ML IV SCH (22:27)
[2020-10-12] MEDS: HYDROmorphone INJ 0.5 MG/0.5 ML SYR IV PRN (22:27)
[2020-10-12] MEDS: ceFAZolin 2000MG 2,000 MG/15 ML SYR IV SCH (23:49)
[2020-10-13] MEDS: ONDANSETRON INJ 2 MG/ML 2 ML VIAL IV PRN ×3 (03:37→17:30)
[2020-10-13] MEDS: oxyCODONE HCL IR 5 MG TAB (IMMEDIATE RELEASE) PO PRN (03:38)
[2020-10-13] MEDS: HYDROmorphone INJ 0.5 MG/0.5 ML SYR IV PRN ×4 (08:32→23:27)
[2020-10-13] MEDS: SODIUM CHLORIDE 0.9% 1000ML 1,000 ML IV SCH ×2 (08:32→23:23)
[2020-10-13] MEDS: DOCUSATE SODIUM 100 MG CAP PO SCH ×2 (09:00→20:57)
[2020-10-13] MEDS: ceFAZolin 2000MG 2,000 MG/15 ML SYR IV SCH ×3 (09:00→23:22)
[2020-10-13] MEDS ORDERED: ATROPINE SULFATE 0.1 MG/ML 10ML SYR IV PRN (10:45)
[2020-10-13] MEDS ORDERED: ePHEDrine sulfate 50 MG/ML AMP IV PRN (10:45)
[2020-10-13] MEDS ORDERED: LABETALOL HCL IV 5 MG/ML 20ML IV PRN (10:45)
[2020-10-13] MEDS ORDERED: PHENYLEPHRINE 100MCG/ML 5ML SYR IV PRN (10:45)
[2020-10-13] MEDS ORDERED: ONDANSETRON INJ 2 MG/ML 2 ML VIAL IV PRN (10:45)
[2020-10-13] MEDS ORDERED: HYDROmorphone INJ 1 MG/ML SYRINGE IV PRN (10:45)
--- NOTE | 2020-10-13 10:49 | Anesthesiology Consultation ---
Date of Service October 13, 2020 Covid 19 negative on 10/12/20. Assessment & Plan (1) Encounter for pre-operative examination: Chart Review Chart Review: Acceptable Risk for Surgery and Patient NOT seen in Pre Admission Testing Consults Requested none History Surgery Operation Date: 10/13/20 07:00 Proposed Procedures p Right Elbow Incision and Drainage, Open Reduction Internal Fixation Olecranon Fracture Right - Jonathan Meraz MD Height/Weight Height: 5 ft 2 in Weight: 80.5 kg Allergies Allergy/AdvReac Type Severity Reaction Status Date / Time No Known Allergies Allergy Verified 10/12/20 17:45 Medications Home Medications Medication Instructions Recorded Confirmed Last Taken atorvastatin 40 mg PO DAILY 10/12/20 10/12/20 Unknown famotidine 20 mg PO DAILY PRN 10/12/20 10/12/20 Unknown fluoxetine 20 mg PO DAILY 10/12/20 10/12/20 Unknown loratadine [Claritin] 10 mg PO DAILY PRN 10/12/20 10/12/20 Unknown Active Medications Generic Name Dose Route Start Last Admin Trade Name Freq PRN Reason Stop Dose Admin Docusate Sodium 100 mg 10/12/20 21:55 10/13/20 09:00 Docusate Sodium 100 Mg Cap PO 11/11/20 21:54 Not Given BID DALTON Hydromorphone HCl 0.5 mg 10/12/20 21:55 10/13/20 08:32 Hydromorphone Inj 0.5 Mg/0.5 Ml Syr IV 10/26/20 21:54 0.5 mg Q3H PRN Administration Pain (6,7,8,9,10) Sodium Chloride 1,000 mls @ 100 mls/hr 10/12/20 23:55 10/13/20 08:32 Nss 1000ml IV 11/11/20 23:54 100 mls/hr .Q10H DALTON Administration Cefazolin Sodium 2,000 mg in 15 mls @ 3.75 mls/min 10/13/20 00:00 10/13/20 09:00 Ancef 2000mg IV 10/15/20 00:00 3.75 mls/min Q8H DALTON Administration Protocol Ondansetron HCl 4 mg 10/12/20 21:55 10/13/20 09:13 Ondansetron Inj 2 Mg/Ml 2 Ml Vial IV 11/11/20 21:54 4 mg Q6H PRN Administration Nausea/Vomiting Oxycodone HCl 10 mg 10/12/20 21:55 10/13/20 03:38 Oxycodone Hcl Ir 5 Mg Tab (Immediate Release) PO 10/26/20 21:54 10 mg Q4H PRN Administration SEVERE Pain (7,8,9,10) NPO Date Last Intake of Fluids: 10/12/20 Time Last Intake of Fluids: 23:59 Date Last Intake of Solids: 10/12/20 Time Last Intake of Solids: 23:59 Past Medical History Medical History Compression fracture of L2 Depression with anxiety Foot fracture, right Hypercholesterolemia Obesity Open fracture of right olecranon Rhinitis, chronic Right radial head fracture Past Surgical History Surgical History History of cholecystectomy History of hysterectomy Status post arthroscopy of right shoulder Social History Smoking Status: Never smoker Do You Dip or Chew Tobacco: No Hx Alcohol Use: Yes alcohol intake frequency: holidays/special occasions only Hx Substance Use: No substance use type: does not use Physical Exam Vital Signs Last Vital Signs Temp 37.2 C 10/13/20 07:32 Pulse 81 10/13/20 07:32 Resp 16 10/13/20 07:32 BP 131/76 10/13/20 07:32 Pulse Ox 94 10/13/20 07:32 Testing Laboratory Results 10/12/20 16:25 10/12/20 16:25 Electrocardiogram Date: 10/12/20 Findings: + NSR @ (65) and + NSST changes
[2020-10-13] MEDS ORDERED: fentaNYL citrate 100 MCG/2 ML VIAL ONE ×2 (10:53→13:06)
[2020-10-13] MEDS ORDERED: PROPOFOL IV EMULSION 10 MG/ML 20 ML VIAL IV ONE (10:53)
[2020-10-13] MEDS ORDERED: LIDOCAINE HCL 2% 2 ML VIAL/AMP(20MG/ML) INFIL ONE (10:53)
[2020-10-13] MEDS ORDERED: MIDAZOLAM HCL 1 MG/ML 2ML VIAL ONE (10:53)
[2020-10-13] MEDS ORDERED: EPINEPHrine INJ 1 MG/ML AMP ONE (10:54)
[2020-10-13] MEDS ORDERED: BUPIVACAINE 0.25% 30 ML VIAL ONE (10:54)
--- NOTE | 2020-10-13 11:17 | Orthopedic Progress Note ---
Date of Service October 13, 2020 Assessment & Plan (1) Open fracture of right olecranon: Proceed with RIGHT OLECRANON AND RADIAL HEAD I&D AND ORIF. Will need 24h abx postop prophylaxis for grade 1 open injury. Present on Admission?: Yes (2) Right radial head fracture: Admission and Anticipated Discharge Date Admission Date: October 12, 2020 Subjective Reports pain meds made her sick overnight. Right now, pain tolerable. No further questions regarding surgery - ready to proceed. Review of Systems Review of Systems: All systems reviewed & are unremarkable except as noted in HPI & below Physical Exam Physical Exam: RUE: splint c/d/i. NV intact to hand. Constitutional: well developed and well nourished; no acute distress and not intoxicated appearing ENMT: external ear and nose normal, oropharynx normal Respiratory: normal respiratory effort; no respiratory distress Cardiovascular: Extremities: normal capillary refill; no edema Skin: no rashes, warm and dry Psychiatric: A+Ox3, euthymic affect Results & Data ([facility]) Vital Signs (Past 12 Hours) Vital Signs Temp Pulse Resp BP Pulse Ox 10/13/20 10:55 36.8 C 81 20 133/77 91 10/13/20 07:32 37.2 C 81 16 131/76 94 10/13/20 02:55 36.9 C 88 16 121/72 93 10/13/20 00:12 37.0 C 74 16 115/73 91 PG Care Time/CCT Total # of Minutes Spent Total Time Spent with Patient: Total time spent is greater than 50% in coordination of care (as documented) at patient's floor/unit and/or counseling patient: Coding Level of Care Code None Diagnoses Open fracture of right olecranon S52.021B Right radial head fracture S52.121A
[2020-10-13] MEDS ORDERED: ROCURONIUM BROMIDE 10 MG/ML 5 ML VIAL IV ONE (11:36)
[2020-10-13] MEDS ORDERED: GLYCOPYRROLATE 0.2 MG/ML VIAL ONE ×2 (12:31→12:44)
[2020-10-13] MEDS ORDERED: KETAMINE 50 MG/5 ML SYRINGE ONE (12:31)
[2020-10-13] MEDS ORDERED: ESMOLOL HCL INJ 10 MG/ML 10ML VIAL IV ONE (12:36)
[2020-10-13] MEDS ORDERED: NEOSTIGMINE METHYLSULFATE 5 MG/5 ML SYR ONE (12:45)
--- NOTE | 2020-10-13 14:25 | Electrocardiogram Report ---
Test Reason : Blood Pressure : / mmHG Vent. Rate : 065 BPM Atrial Rate : 065 BPM P-R Int : 140 ms QRS Dur : 070 ms QT Int : 406 ms P-R-T Axes : 009 030 047 degrees QTc Int : 422 ms Poor data quality, interpretation may be adversely affected Normal sinus rhythm Low voltage QRS Nonspecific ST abnormality Abnormal ECG When compared with ECG of 08-FEB-2017 11:43, No significant change was found Confirmed by Demetrius Blandon ([id number]) on 10/13/2020 2:24:28 PM Referred By: REFERRED SELF Confirmed By:Demetrius Blandon
--- NOTE | 2020-10-13 15:37 | Fluoroscopy Report ---
FL elbow RT 3V RTN CLINICAL HISTORY: RT ORIF OLECRANON FX COMPARISON STUDY: Right elbow radiographs and CT of the right elbow October 12, 2020. FLUOROSCOPY TIME: 1 minute and 18 seconds. FLUOROSCOPIC IMAGES: 5 FINDINGS: Fluoroscopy was provided during open reduction and internal fixation of the proximal right ulnar fracture. Plate and screw fixation is noted. The hardware is intact. Fracture alignment has mar kedly improved and is near anatomic. 3 screws fixate the radial head fracture. There are no unexpecte d radiopaque foreign bodies. IMPRESSION: Fluoroscopy provided during internal fixation of the proximal right ulnar and radial fra ctures. ACT 112: Negative or not required by law. Electronically signed by: Gonzalo Gallegos M.D. 10/13/2020 3:36 PM
--- NOTE | 2020-10-13 16:03 | Post Operative Brief Note ---
PG Immediate Post Op with CF Date of Surgery October 13, 2020 Pre & Post Diagnosis Operation Date: 10/13/20 07:00 Pre-Op Diagnosis: Open fracture of right olecranon, Right radial head fracture Post-Op Diagnosis: Open fracture of right olecranon, Right radial head fracture I identified the patient and participated in the time-out.: Yes Procedure Operation Date: 10/13/20 07:00 Actual Procedures p Right Elbow Incision and Drainage, Open Reduction Internal Fixation Olecranon Fracture Right(Right) - Jonathan Meraz MD Surgeon Jonathan Meraz MD Centerless Grinder Set Up Operator Rk Hodges PA-C Estimated Blood Loss 50 Findings Consistent with Post-Op Diagnosis Specimens Specimen Description: None per surgeon
--- NOTE | 2020-10-13 16:05 | Operative Report ---
PG Post Operative Report Pre & Post Diagnosis Operation Date: 10/13/20 07:00 Pre-Op Diagnosis: Open fracture of right olecranon, Right radial head fracture Post-Op Diagnosis: Open fracture of right olecranon, Right radial head fracture I identified the patient and participated in the time-out.: Yes Procedure Operation Date: 10/13/20 07:00 Actual Procedures p Right Elbow Incision and Drainage, Open Reduction Internal Fixation Olecranon Fracture Right(Right) - Jonathan Meraz MD Surgeon Jonathan Meraz MD Transport Operations Inspector Rk Hodges PA-C Estimated Blood Loss 50 Findings See Below There was a comminuted olecranon fracture with a large dorsal butterfly fragment with good soft tissue coverage that was stabilized 2.4 mm interfragmentary lag screws x2. The main fracture stabilized with an 8 hole contoured olecranon plate with locking fixation of the proximal fragment and dynamic compression in the shaft screws. The radial head had an anterolateral rim avulsion that was sizable and minimally comminuted. It was stabilized with 3 x 2.4 mm mini fragment screws. A 1.1 mm guidepin broke and remains impacted into the ulna but there was no evidence of mechanical irritation. Specimens none Anesthesia Type General Complications none Disposition Accompanied Patient To Recovery: Yes Disposition: Recovery Room Indications 65-year-old female fell onto her right elbow resulting in immediate pain, open wound and inability to use her elbow. She was admitted to the hospital via the emergency room due to an open fracture after provisional irrigation debridement and sterile dressing application, reduction and splint under intravenous pain control in the emergency room. Given the open injury and posterior fracture dislocation elbow, I recommended internal fixation after formal irrigation debridement. We discussed risk benefits in detail as outlined in the history and physical. Informed consent was obtained in the emergency room. Description of Procedure On the day of surgery, the patient was greeted in the preoperative holding area. The informed consent was reviewed and confirmed by myself and the patient. The patient identified the surgical site and was marked by me. The patient was then turned over to anesthesia. Patient was taken the operating place upon the OR table. Anesthesia was induced, and the airway was secured. She was then positioned in a lateral decubitus position without a well-padded axillary roll. Beanbag was used to stabilize her body. All bony promises well-padded. Surgical blankets then used to create a working surface for the right upper extremity. Provisional fluoroscopic shots were obtained to ensure visualization. The right upper she was then prepped and draped in usual sterile fashion. A nonsterile tourniquet had been placed proximal to the drapes. Surgical timeout was called by the senior technical recruiter and verified by all present. Antibiotics have been infused, and equipment was available functional. Surgery was initiated by exsanguination the limb using the Esmarch bandage, and inflation of the tourniquet to 250 mmHg. Total tourniquet time was 126 minutes with a small extension to get the final radial head interfragmentary screw. Sharp dissection was carried down included a primary posterior approach to the olecranon with wide medial lateral flaps. The traumatic wound was excised and soft tissue was sharply debrided from the fracture site and thoroughly irrigated with over 1 L of normal saline. Fracture ends were delivered and debrided sharply. There was a large butterfly fragment on the dorsal aspect of good soft tissue attachment. Soft tissue attachment was distal so this was flat back. The main fracture fragments were then aligned using reduction clamps. It was transverse in nature without the butterfly fragment. The butterfly fragment with soft tissue pedestal was then positioned in place and provisionally pinned with K wires. A 2.4 mm interfragmentary screw was then placed proximally and distally to connect the fracture. Fluoroscopic imaging was used to presiding judge screw position and reduction. It appeared to be near-anatomic. Plate was chosen based on its size and providing at least 3 cortices of distal fixation beyond the main fracture pattern. The 8 hole olecranon plate seem to fit the best. It was placed over the olecranon and held firmly against the bone. The more proximal proximal to distal screws were placed first to get the plate to fit down on the curve of the olecranon. We then used additional 3 more 2.4 mm locking screws in the proximal fragment. Fluoroscopic imaging was used to assess screw length and position of the plate on the bone. We then moved to the shaft and placed 3 nonlocking screws and dynamic compression mode to further reduce the fracture. 6 cortical fixation was achieved distally and 4 locking screws were placed proximally. Fluoroscopic imaging demonstrated well reduced fracture that was stable through range of motion for repositioning due to the approach for the radial head. The lateral skin flap was further elevated. This about access to an EDC split to preserve the anterior band of the lateral collateral ligament. EDC was then split and retractors were placed for visualization into the joint capsule which was incised longitudinally. This allowed easy visualization the radial head fragment was displaced towards the medial aspect of the joint. It was easily rotated on its intact soft tissue pedicle. There was only minimal comminution and seem to reduce in an anatomic fashion. It was pinned using 1.1 mm K wires provisionally. Unfortunately some of the peripheral bone fragmented and this had to be redone. I was able to get an adequate reduction and then hold in pl padmini with a 2.4 mm mini fragmentation screw in 3 separate locations along this rim fracture. The K wires were taken out, but there was difficulty in grasping their fine caliber with our power drill. This did result in breakage of 1 pin that had traversed into the ulna. There was no viable dissection to retrieve this pin. The arm was inspected in multiple planes of fluoroscopy and by retraction down to the joint deeply. This pin was not graspable and appeared to be well seated in the ulna. There was no mechanical sensation in range of motion including at the extremes. At that point I felt there was no further dissection that was safe to do and achieve any advantage with excising that broken pin fragment. The radial head was evaluated on multiplanar fluoroscopy and found to be well re duced and fixed. On manual inspection he had full pronation and supination and the screw heads were seated below the chondral level. There is no evidence of screw traversing the radial head articular cartilage. The arm had a full range of motion. During the approach the anterior band was released somewhat from the lateral epicondyle to obtain more visualization to search for the broken pin. For that reason, I placed a single peek 3.0 Arthrex double loaded suture anchor to repair the LCL. The annular ligament that had been minimally incised to reveal the head was repaired using 0 Vicryl suture in a [id number] fashion. The LCL was approximated back to its bony footprint. At its most anterior superior margin. The EDC split was repaired using interrupted and running 0 Vicryl suture. The olecranon approach was then thoroughly irrigated. She had significant muscle edema after release of the tourniquet at 126 minutes. Additional time was needed to complete the radial head fixation and then search for potential access to the broken pin. The main incision was then thoroughly irrigated once again. The periosteum was approximated as much possible over the olecranon plate. Triceps incision was repaired side to side in an anatomic fashion over the olecranon angle. The deep subcutaneous tissues were approximate using 0 Vicryl suture. The deep dermis was approximate using 3-0 Vicryl suture. The skin was closed finally with interrupted 3-0 nylon suture in a vertical mattress pattern. The wound was dressed with sterile Xeroform, sterile gauze, ABD and contained by web roll. A posterior Ortho-Glass splint was applied and 90 degrees of flexion. Patient was then turned over to anesthesia. She was extubated in the operating room without complication, and then transferred to the PACU in stable condition. Disposition: She will remain as an inpatient for 24 hours post surgical antibiotic prophylaxis for open injury. At that point should be discharged to home with close clinic follow-up. We will begin early range of motion postop day 3 or 6 during a postoperative visit in our clinic, depending on her availability. Once the splint is taken off in clinic, she will be nonweightbearing for at least 6 weeks. Should be range of motion as tolerated and use a sling for support and comfort. Physician yard assistant attestation: Rk Hodges PA-C was present and scrubbed for the duration of the case. He was essential to prepping/draping, patient positioning, retraction, and assistance with wound closure. His skilled retraction was essential for the multiple appr oaches for this complex elbow fracture dislocation. In addition, his skilled surgical instrument utilization was necessary to help with fracture reduction, drilling and screw placement. I attest to the content of the Intraoperative Record and any orders documented therein. Any exceptions are noted below.
[2020-10-13] MEDS: fentaNYL citrate 100 MCG/2 ML VIAL IV PRN ×4 (16:32→16:47)
--- NOTE | 2020-10-13 16:42 | XRay Report ---
XR elbow RT 2V CLINICAL HISTORY: Post-op COMPARISON STUDY: Right elbow 10/12/2020. FINDINGS: Status post internal fixation of the proximal right radius and ulnar fractures with cortica l plates and screws. The hardware is intact. Alignment is near-anatomic. No dislocation. Small amount of gas remains within the joint space. Overlying splint material obscures fine bony detail. IMPRESSION: Status post internal fixation of the proximal right radius and ulnar fractures. The hard vasquez appears intact. ACT 112: Negative or not required by law. Electronically signed by: Anthony Phillips M.D. 10/13/2020 4:41 PM
[2020-10-13] MEDS ORDERED: LORATADINE 10 MG TAB PO PRN (17:33)
[2020-10-13] MEDS ORDERED: FAMOTIDINE 20 MG TAB PO PRN (17:41)
--- NOTE | 2020-10-13 17:47 | Anesthesiology Progress Note ---
Date of Service October 13, 2020 Anesthesia Post Procedure Vital Signs Vital Signs: Temp Pulse Pulse Resp BP Pulse Ox 10/13/20 17:05 98.1 F 79 18 126/66 94 10/13/20 16:55 70 14 124/65 95 10/13/20 16:45 69 12 117/62 93 10/13/20 16:35 75 17 112/66 93 10/13/20 16:25 70 12 116/60 93 10/13/20 16:15 71 14 108/61 92 10/13/20 16:05 97.7 F 79 16 121/57 L 92 10/13/20 10:55 98.2 F 81 20 133/77 91 10/13/20 07:32 99.0 F 81 16 131/76 94 10/13/20 02:55 98.4 F 88 16 121/72 93 10/13/20 00:12 98.6 F 74 16 115/73 91 10/12/20 21:35 98.2 F 77 15 135/77 92 Pain Intensity Right Abdomen: Pain Intensity: 6 Right Arm: Pain Intensity: 4 Transfer of Care Handoff Completed per policy Notes Mental Status: alert / awake / arousable and participated in evaluation Patient Amnestic to Procedure: Yes Nausea / Vomiting: adequately controlled Pain: adequately controlled Airway Patency, RR, SpO2: stable & adequate BP & HR: stable & adequate Hydration State: stable & adequate Anesthetic Complications: no major complications apparent and Pt Satisfied with anesthetic care
[2020-10-14] MEDS: HYDROmorphone INJ 0.5 MG/0.5 ML SYR IV PRN (03:00)
[2020-10-14] MEDS: ONDANSETRON INJ 2 MG/ML 2 ML VIAL IV PRN ×2 (03:04→10:20)
[2020-10-14] MEDS: oxyCODONE HCL IR 5 MG TAB (IMMEDIATE RELEASE) PO PRN ×3 (06:16→15:36)
[2020-10-14] MEDS: DOCUSATE SODIUM 100 MG CAP PO SCH (08:00)
[2020-10-14] MEDS: ceFAZolin 2000MG 2,000 MG/15 ML SYR IV SCH ×2 (08:01→16:22)
[2020-10-14] MEDS: SODIUM CHLORIDE 0.9% 1000ML 1,000 ML IV SCH (08:01)
[2020-10-14] MEDS ORDERED: ATORVASTATIN 40 MG TAB PO SCH (09:00)
[2020-10-14] MEDS ORDERED: FLUoxetine HCL 20 MG CAP PO SCH (09:00)
--- NOTE | 2020-10-14 13:16 | Orthopedic Progress Note ---
Date of Service October 14, 2020 Assessment & Plan (1) Right radial head fracture: (2) Open fracture of right olecranon: Present on Admission?: Yes (3) Open fracture dislocation of elbow joint: Making uncomplicated progress on postop day 1. She needs to finish her 24-hour postoperative antibiotic prophylaxis. Then she can be discharged today. I reviewed the follow-up plan. She will return at postop day 4 in our clinic for takedown of the splint and transition to a simple sling with early range of motion. She is agreeable to that plan. Admission and Anticipated Discharge Date Admission Date: October 12, 2020 Subjective Reports pain that is tolerable with her oral oxycodone. Denies any weakness or significant numbness. She does experience occasionally tingling in her fingers that she reports are quite stiff. Otherwise no issues overnight. Appetite intact. Review of Systems Review of Systems: All systems reviewed & are unremarkable except as noted in HPI & below Physical Exam Physical Exam: Right upper extremity: The sling and splint are clean dry and intact. She is full active range of motion to her digits and is neurovascular intact to the AIN, PIN and ulnar nerve distribution. Results & Data ([facility]) Vital Signs (Past 12 Hours) Vital Signs Temp Pulse Resp BP Pulse Ox 10/14/20 07:25 36.8 C 81 16 151/80 H 96 10/14/20 02:51 37.1 C 84 16 152/78 H 95 postop x-rays demonstrate adequate reduction and no hardware complications. PG Care Time/CCT Total # of Minutes Spent Total Time Spent with Patient: Total time spent is greater than 50% in coordinat ion of care (as documented) at patient's floor/unit and/or counseling patient: Coding Level of Care Code None Diagnoses Right radial head fracture S52.121A Open fracture of right olecranon S52.021B Open fracture dislocation of elbow joint S42.409B
--- NOTE | 2020-10-21 11:41 | Discharge Summary ---
Date of Service October 21, 2020 Admission HPI Per Admitting Provider 65-year-old female who stumbled in her basement tonight and landed directly on her right elbow resulting in immediate pain and open wound. She was brought to the [facility] emergency room by a family member for evaluation. Exam and radiographs demonstrate an open olecranon fracture and associated radial head dislocation with fracture. She reports no antecedent elbow pain. She denies any previous injuries to her wrist or elbow. 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 She states that she has been in her usual state of health and has been quite isolated from [place] [id number]. She states her last meal was at 1400 today. She denies any numbness or tingling to her hand that persisted. She did have temporary tingling in her hand when it first happened. She denies any other sources of pain such as her more proximal arm, clavicle, head or neck. She believes that injury is isolated. She denies any loss of consciousness. Principal Diagnosis Right elbow fracture dislocation with radial head and olecranon fractures. Discharge Exam RUE: Dressing c/d/i. DNVI. Constitutional well developed and well nourished; no acute distress and not intoxicated appearing ENMT external ear and nose normal, oropharynx normal Respiratory normal respiratory effort; no respiratory distress Cardiovascular Extremities: normal capillary refill; no edema Skin no rashes, warm and dry Psychiatric A+Ox3, euthymic affect Discharge Data Allergies Allergy/AdvReac Type Severity Reaction Status Date / Time No Known Allergies Allergy Verified 10/12/20 17:45 Consultations 10/12/20 18:15 ED Decision to Admit Stat Procedures Performed Operation Date: 10/13/20 07:00 Actual Procedures p Open Reduction Internal Fixation Olecranon Fracture Right(Right) - Jonathan Meraz MD s Right Elbow Incision and Drainage(Right) - Jonathan Meraz MD Ordered Studies 10/12/20 18:32 FL forearm RT 2V Stat 10/12/20 18:33 FL fluoroscopy <1hr Stat 10/12/20 19:07 CT elbow RT wo con Stat 10/13/20 10:30 FL elbow RT 3V RTN Routine FL fluoroscopy <1hr Routine Hospital Course (1) Open fracture dislocation of elbow joint: After wound management and closed reduction in the ER, she was admitted for antibiotic prophylaxis and urgent I&D with ORIF of the right elbow fracture dislocation on 10/13/2020. She made uncomplicated progress postoperatively and was discharged to home on POD1 after completed 24h of parenteral abx prophylaxis with close interval followup as an outpatient. Total Time Total Time Spent Total Time Spent (In Minutes): 15 minutes Total Time Includes: Examination of the Patient, Discharge Planning and Medication Reconciliation Discharge Plan Discharge Items Patient Disposition: Home - Self-Care Reason For Visit: RIGHT ELBOW FRACTURE-DISLOCATION Discharge Diagnosis: Right open elbow fracture dislocation Activity: Per Instructions section Non-emergency contact: Surgeon Call non-emergency contact if: you have any medication questions, your pain is not controlled, you have a fever and your temperature is above 101.5 Follow-up/Referrals: Jonathan Meraz MD [Surgeon] - 10/16/20 1:30 pm Hilda Montoya DO [Primary Care Provider] - Diet: Regular Addtl Attending Provider Instructions: SPLINT/WOUND CARE: Leave your splint in place and keep the area clean and dry. Your splint will be taken down at your postop clinic visit. Do not remove it yourself. You should be completely non-weightbearing. Rest the arm in the sling for comfort. You may adjust the sling as needed. You can flex and extend and wiggle your fingers as much as the splint allows, when tolerable. Finger motion will help with swelling and is encourage. You can type, use your smartphone, and/or mouse as tolerated. If the splint becomes wet, dirty, uncomfortable, or loose, please call the [facility]opedic [facility] ([phone]) to arrange to be evaluated. Please call the Ortho Clinic if you have any questions or concerns. PAIN CONTROL: Elevation is your best friend. Swelling is simply fluid. Elevation will allow the fluid to run down hill, reduce swelling, and decrease pain. Medications: 1. Oxycodone (OxyIR) 1-2 tablet(s) orally every 4 hours for pain as needed. Use with Tylenol. Begin tapering OxyIR as soon as possible: reduce from 2 to 1 pills per dose, then spread out the doses over greater time intervals, then t ry to use only for therapy or for comfort while sleeping. Continue to use regular Tylenol until pain subsides. 2. OVER THE COUNTER Tylenol (generic = acetaminophen): 975-1000 mg every 8 hours orally. Regular dosing of Tylenol is an important part of your baseline pain control. Do not taper Tylenol until you have successfully tapered off of regular OxyIR. Do not take more than 3000mg of Tylenol per day. 3. Naproxen 220mg tablet: take two tablets twice daily for 30 days to avoid extra bone forming around elbow (Heterotopic Ossification) 4. Zofran: 1 tablet orally every 6 hours as needed for nausea related to anesthesia, pain, and narcotic medications. 5. Colace (100mg): take 1-2 tabs twice daily to avoid constipation from OxyIR or other narcotics. OVER THE COUNTER WHEN TO CALL. If you develop any of the following symptoms, please contact the [facility] at [phone] or the Emergency room (after hours): Temperature greater than 101 taken twice, difficulty breathing, bleeding, fever and chills, increased pain unrelieved by pain meds, uncomfortable cast or splint, or any other concerns. Stand-Alone Forms: My ADP, Smoking Cessation Medications and DC Order Prescriptions: New ondansetron HCl [Zofran] 4 mg tablet 4 mg PO DAILY PRN (Reason: nausea and vomiting) Qty: 10 RF: 0 naproxen sodium 220 mg tablet 440 mg PO BID Qty: 120 RF: 0 Continued atorvastatin 40 mg tablet 40 mg PO DAILY RF: 0 fluoxetine 20 mg capsule 20 mg PO DAILY RF: 0 loratadine [Claritin] 10 mg Tablet 10 mg PO DAILY PRN (Reason: Allergy Symptoms) RF: 0 Discontinued famotidine 20 mg Tablet,Disintegrating 20 mg PO DAILY PRN (Reason: Heartburn) RF: 0 No Action oxycodone 5 mg tablet 5 - 10 mg PO Q4H PRN (Reason: pain) Qty: 20 RF: 0 Discharge Orders: Discharge Order (Routine); Ordered 10/14/20 Ordered By: Jonathan Meraz Admission Data Admit Date/Time: 10/12/20 20:13 Attending Provider: Jonathan Meraz Admit Provider: Jonathan Meraz Primary Care Provider: Hilda Montoya Other Providers: Jonathan Meraz Other Interventions: Discharge Summary Assessment (RN) Last Done: 10/14/20 13:53 Coding Level of Care Code D/C Day Management <30 mins Diagnoses Open fracture dislocation of elbow joint S42.409B
== END 2020-10-14 17:14 | disposition home or self-care (01) | DRG 502 ==
LOC: ED 15:28 → 3N 20:13